=== PATIENT | female | born 1990 | race Caucasian/White ===

== ENCOUNTER 2020-09-13 19:11 | Emergency (ER) | payer OTHER, SELFPAY ==
[2020-09-13 19:15] VITALS: BP 131/75; PULSE 92; RESP 18; TEMP 36.3; O2SAT 99
[2020-09-13 19:56] LABS: Basophils Absolute Auto 0.1 K/mm3 (0.0-0.1); Basophils Percent Auto 0.7 % (0.2-1.2); Eosinophils Absolute Auto 0.3 K/mm3 (0-0.3); Eosinophils Percent Auto 3.6 % (0-4.4); Hematocrit 42.8 % (37.0-47.0); Hemoglobin 14.3 g/dL (12.0-15.0); Immature Granulocyte Absolute 0.02 K/mm3 (0.00-0.031); Immature Granulocyte Percent A 0.2 % (0-0.5); Lymphocytes Absolute Auto 3.23 K/mm3 (0.9-3.2); Lymphocytes Percent Auto 38.2 % (18.3-44.2); Mean Corpuscular HGB Conc 33.4 g/dl (32-36); Mean Corpuscular Hemoglobin 29.2 pg (26-34); Mean Corpuscular Volume 87.5 fl (80-100); Mean Platelet Volume 10.6 fl (7.4-10.4); Monocytes Absolute Auto 0.6 K/mm3 (0.1-0.6); Monocytes Percent Auto 6.6 % (2.6-8.5); Neutrophils Absolute Auto 4.3 K/mm3 (1.3-6.7); Neutrophils Percent Auto 50.7 % (45.5-73.1); Platelet Count Result 335 k/mm3 (150-375); Red Blood Count 4.89 M/mm3 (4.2-5.4); Red Cell Distribution Width 13.1 % (11.5-14.5); White Blood Count 8.5 K/mm3 (4.5-10.0)
[2020-09-13 19:58] LABS: Add Urine Microscopic? NO; Appearance Urine Clear (Clear); Bilirubin Urine Negative (Negative); Blood Urine Negative (Negative); Color Urine Yellow (Yellow); Glucose Urine UA Negative (Negative); Ketones Urine Negative (Negative); Leukocyte Esterase Ur Negative LEU/UL (Negative); Nitrate Urine Negative (Negative); Protein Urine Negative (Negative); Specific Grav Ur 1.016 (1.001-1.035); Urobilinogen Urine Negative mg/dL (<2.0)
[2020-09-13 20:07] LABS: Anion Gap 8 mmol/L (8-16); Blood Urea Nitrogen 8 mg/dL (7-17); Calcium 9.2 mg/dL (8.4-10.2); Carbon Dioxide 26 mmol/L (22-30); Chloride 107 mmol/L (98-107); Estimated CRCL calculation 111 ml/min; Estimated Glomerular Filt Rate > 60; Glucose 90 mg/dL (65-105); Potassium 3.9 mmol/L (3.4-5.0); Sodium 141 mmol/L (137-145)
--- NOTE | 2020-09-13 20:43 | ED.BACK ---
HPI - Back Pain/Injury General Chief Complaint: Back Pain/Injury <Niles Chu PA-C - Last Filed: 09/13/20 20:48> Stated Complaint: back pain <Niles Chu PA-C - Last Filed: 09/13/20 20:48> Time Seen by Provider: 09/13/20 20:30 <Niles Chu PA-C - Last Filed: 09/13/20 20:48> Source: patient <Niles Chu PA-C - Last Filed: 09/13/20 20:48> Mode of arrival: ambulatory <Niles Chu PA-C - Last Filed: 09/13/20 20:48> Limitations: no limitations <DEON Dash Last Filed: 09/13/20 20:48> History of Present Illness HPI Narrative: Patient is a 29-year-old female who presents to emergency department for evaluation of right lower back pain radiating down the right leg that is been present since Saturday patient had been at a alliance party prior evening developed the pain next day upon waking which has been persistent. Patient has not taken anything for his symptoms on arrival to emergency department is in the room in no distress pain is worse with any activity or movement <Niles Chu PA-C - Last Filed: 09/13/20 20:48> Related Data Home Medications: Home Medications Medication Instructions Recorded Confirmed albuterol sulfate 2 CONTINUOUS NEBULIZATION TID 09/13/20 <Niles Chu PA-C - Last Filed: 09/13/20 20:48> Allergies/Adverse Reactions: Allergies Allergy/AdvReac Type Severity Reaction Status Date / Time adhesive tape Allergy Mild HIVES Verified 09/13/20 19:12 <Niles Chu PA-C - Last Filed: 09/13/20 20:48> Review of Systems Review of Systems: All systems reviewed & are unremarkable except as noted in HPI and below <Niles Chu PA-C - Last Filed: 09/13/20 20:48> [facility] Surgical History Surgical History: Surgical History (Updated 09/13/20 @ 20:45 by Niles Chu PA-C) H/O section <DEON Dash Last Filed: 09/13/20 20:48> Social History Social History: Social History (Updated 09/13/20 @ 20:45 by Niles Chu PA-C) Smoking status: Never smoker Gender identity (if verbalized by the patient): Female <Niles Chu PA-C - Last Filed: 09/13/20 20:48> Exam Narrative: Exam Narrative: GENERAL: Well-appearing, well-nourished, and in no acute distress. HEAD: Normocephalic, atraumatic. EYES: PERRLA and EOMI. ENT: Nares clear, no rhinorrhea or epistaxis. Mucous membranes moist. CHEST: Clear to auscultation. No respiratory distress. No wheezes rales or rhonchi HEART: Regular rate and rhythm. No murmur heard. Normal peripheral pulses. ABDOMEN: Soft, nontender, nondistended EXTREMITIES: Normal range of motion. No edema. Tenderness over the right lower lumbar region over the right SI joint SKIN: Warm, dry, no rash. NEURO: No focal deficits. Alert and oriented x3. Normal speech and gait PSYCH: Normal mood and affect. <Niles Chu PA-C - Last Filed: 09/13/20 20:48> Course Course Emergency Course: Patient with low back pain likely sciatic in nature given the radicular symptoms down the leg no other high risk changes in the blood work patient will be discharged on anti-inflammatories and muscle relaxers. Patient was given a dose of anti-inflammatory in the emergency depart <Niles Chu PA-C - Last Filed: 09/13/20 20:48> Vital Signs Vital signs: Vital Signs Temperature 36.3 C L 09/13/20 19:15 Pulse Rate 92 09/13/20 19:15 Respiratory Rate 18 09/13/20 19:15 Blood Pressure 131/75 09/13/20 19:15 Pulse Oximetry 99 09/13/20 19:15 Temperature 36.3 C L 09/13/20 19:15 Pulse Rate 67 09/13/20 22:22 Respiratory Rate 18 09/13/20 22:22 Blood Pressure 124/87 09/13/20 22:22 Pulse Oximetry 99 09/13/20 22:22 <Niles Chu PA-C - Last Filed: 09/13/20 20:48> Vital Signs Temperature 36.3 C L 09/13/20 19:15 Pulse Rate 92 09/13/20 19:15 Respiratory Rate 18 09/13/20 19:15 Blood Pressure 131/75
[2020-09-13] MEDS: KETOROLAC (*BKC) 60 MG/2 ML VIAL IM (21:03)
[2020-09-13 21:28] VITALS: BP 116/80; PULSE 73; RESP 18; O2SAT 73
[2020-09-13 22:22] VITALS: BP 124/87; PULSE 67; RESP 18; O2SAT 99
== END 2020-09-13 22:25 | disposition home or self-care (01) ==
PROVIDERS: General Practice; Emergency Provider Emergency Medicine
DX: M54.16 Radiculopathy, lumbar region (principal)
CPT/HCPCS: 36415; 80048; 81003; 81025; 85025; 96372; 99283; J1885

== ENCOUNTER 2021-05-28 16:04 | Emergency (ER) | payer OTHER, SELFPAY ==
[2021-05-28 16:08] VITALS: BP 154/84; PULSE 100; RESP 18; TEMP 36.6; O2SAT 99
--- NOTE | 2021-05-28 16:25 | ED.GENADULT ---
HPI - General Adult General Chief complaint: Dizziness <DEON Dash Last Filed: 05/28/21 18:47> Stated complaint: , dizzy <DEON Dash Last Filed: 05/28/21 18:47> Time Seen by Provider: 05/28/21 16:05 <DEON Dash Last Filed: 05/28/21 18:47> Source: patient and RN notes reviewed <DEON Dash Last Filed: 05/28/21 18:47> Mode of arrival: ambulatory <DEON Dash Last Filed: 05/28/21 18:47> Limitations: no limitations <DEON Dash Last Filed: 05/28/21 18:47> History of Present Illness HPI narrative: Patient is a 30-year-old female who presents with dizziness since Saturday patient notes she is currently 10 weeks has had a ultrasound confirming intrauterine is G6, P1 followed by Dr. Rain patient is taking nausea medicine but continues to have emesis and believes that the symptoms she is experiencing could be related to dehydration from emesis and poor p.o. intake patient denies any pelvic pain vaginal bleeding abdominal pain urinary symptoms or issues with bowel habits patient presents in no distress denying any pain notes dizziness worse with activity and movement notes that she has had rhinorrhea and congestion but denies other URI symptoms patient is taking her nausea medicine and prenatals as her only medications <Niles Chu PA-C Last Filed: 05/28/21 18:47> Related Data Home medications: Home Medications Medication Instructions Recorded Confirmed albuterol sulfate 2 CONTINUOUS NEBULIZATION TID 09/13/20 <Niles Chu PA-C Last Filed: 05/28/21 18:47> Allergies/adverse reactions: Allergies Allergy/AdvReac Type Severity Reaction Status Date / Time adhesive tape Allergy Mild HIVES Verified 09/13/20 19:12 <DEON Dash Last Filed: 05/28/21 18:47> Review of Systems Review of Systems: All systems reviewed & are unremarkable except as noted in HPI and below <DEON Dash Last Filed: 05/28/21 18:47> [facility] Surgical History Surgical History: Surgical History H/O section <Niles Chu PA-C - Last Filed: 05/28/21 18:47> Social History Social History: Social History (Updated 05/28/21 @ 16:26 by Niles Chu PA-C) Smoking status: Never smoker Gender identity (if verbalized by the patient): Female <Niles Chu PA-C - Last Filed: 05/28/21 18:47> Exam Narrative: Exam Narrative: GENERAL: Well-appearing, well-nourished, and in no acute distress. HEAD: Normocephalic, atraumatic. EYES: PERRLA and EOMI. ENT: Nares clear, no rhinorrhea or epistaxis. Mucous membranes moist. Oropharynx without tonsillar hypertrophy exudate or other lesions. Bilateral TMs pearly hazel slightly bulging with fluid levels NECK: Supple. No adenopathy or masses. CHEST: Clear to auscultation. No respiratory distress. No wheezes rales or rhonchi HEART: Regular rate and rhythm. No murmur heard. Normal peripheral pulses. ABDOMEN: Soft, nontender, nondistended EXTREMITIES: Normal range of motion. No edema. SKIN: Warm, dry, no rash. NEURO: No focal deficits. Alert and oriented x3. PSYCH: Normal mood and affect. <Niles Chu PA-C - Last Filed: 05/28/21 18:47> Course Course Emergency Course: Patient presented with nausea and vomiting dizziness was hydrated feels much better at this time tolerating p.o. intake, patient will follow with her planned rush seater visit on Saturday with Dr. Silvio Oviedo, patient is afebrile nontoxic-appearing no distress, patient symptoms could also be attributed to the fluid levels behind her ears with her sinus symptoms that she is currently experiencing. Patient will be discharged home she agrees with this plan and will return if symptoms worsen <Niles Chu PA-C - Last Filed: 05/28/21 18:47> Vital Signs Vital signs:
[2021-05-28 16:37] LABS: Add Urine Microscopic? YES; Amorphous Sediment Urine Few; Appearance Urine Cloudy (Clear); Bacteria Urine 1+ /hpf; Bilirubin Urine Negative (Negative); Blood Urine Negative (Negative); Color Urine Yellow (Yellow); Glucose Urine UA Negative (Negative); Ketones Urine Negative (Negative); Leukocyte Esterase Ur Negative LEU/UL (Negative); Mucus Urine Few /lpf; Nitrate Urine Negative (Negative); Protein Urine 1+ mg/dL (Negative); RBC Urine 0-2 /hpf (0-2); Specific Grav Ur 1.019 (1.001-1.035); Squamous Epithelial Cell Urine Moderate /hpf (Few); Urobilinogen Urine Negative mg/dL (<2.0); WBC Urine 0-3 /hpf
[2021-05-28 16:43] LABS: Basophils Percent Auto 0.6 % (0.2-1.2); Eosinophils Absolute Auto 0.1 K/mm3 (0-0.3); Eosinophils Percent Auto 2.2 % (0-4.4); Hematocrit 39.6 % (37.0-47.0); Hemoglobin 13.5 g/dL (12.0-15.0); Immature Granulocyte Absolute 0.02 K/mm3 (0.00-0.031); Immature Granulocyte Percent A 0.3 % (0-0.5); Lymphocytes Absolute Auto 1.97 K/mm3 (0.9-3.2); Lymphocytes Percent Auto 30.3 % (18.3-44.2); Mean Corpuscular HGB Conc 34.1 g/dl (32-36); Mean Corpuscular Hemoglobin 28.4 pg (26-34); Mean Corpuscular Volume 83.4 fl (80-100); Mean Platelet Volume 10.1 fl (7.4-10.4); Monocytes Absolute Auto 0.5 K/mm3 (0.1-0.6); Neutrophils Absolute Auto 3.8 K/mm3 (1.3-6.7); Neutrophils Percent Auto 58.6 % (45.5-73.1); Platelet Count Result 358 k/mm3 (150-375); Red Blood Count 4.75 M/mm3 (4.2-5.4); Red Cell Distribution Width 12.7 % (11.5-14.5); White Blood Count 6.5 K/mm3 (4.5-10.0)
[2021-05-28 16:53] LABS: Alanine Aminotransferase 10 U/L (4-35); Albumin Level 4.1 g/dL (3.5-5.1); Alkaline Phosphatase 50 U/L (38-126); Anion Gap 10 mmol/L (8-16); Aspartate Amino Transferase 20 U/L (14-36); Bilirubin,Total 0.2 mg/dL (0.2-1.3); Blood Urea Nitrogen 5 mg/dL (7-17); Calcium 9.6 mg/dL (8.4-10.2); Carbon Dioxide 21 mmol/L (22-30); Chloride 105 mmol/L (98-107); Estimated CRCL calculation 122 ml/min; Estimated Glomerular Filt Rate > 60; Glucose 99 mg/dL (65-105); Potassium 3.7 mmol/L (3.4-5.0); Sodium 136 mmol/L (137-145)
[2021-05-28] MEDS: SODIUM CHLORIDE 0.9% IV 1,000 ML 999 ML IV CONT (16:57)
[2021-05-28] MEDS: FAMOTIDINE 20 MG/2 ML VIAL IV PUSH (16:59)
[2021-05-28 17:03] VITALS: BP 104/74; BP 108/73; PULSE 79; PULSE 80
[2021-05-28] MEDS: PROCHLORPERAZINE EDISYLATE 10 MG/2 ML VIAL IV PUSH (17:03)
[2021-05-28 17:06] VITALS: BP 96/78; PULSE 93
[2021-05-28 17:15] VITALS: BP 102/81; PULSE 74; RESP 18; O2SAT 100
--- NOTE | 2021-05-28 17:33 | PC.NURSE ---
OB contacted for heart tone monitoring.
[2021-05-28] MEDS: DEXTROSE 5%/LACTATED RINGERS 1,000 ML 999 ML IV CONT (17:50)
--- NOTE | 2021-05-28 18:01 | PC.NURSE ---
OB unable to find heart tones. TRACEY Woodard aware.
[2021-05-28 18:56] VITALS: BP 108/70; PULSE 81; RESP 16; TEMP 36.4; O2SAT 99
== END 2021-05-28 18:58 | disposition home or self-care (01) ==
PROVIDERS: Emergency Medicine Emergency Medical Services; Emergency Provider General Practice; PCP Emergency Medicine
DX: O21.9 Vomiting of pregnancy, unspecified (principal); O26.891 Other specified pregnancy related conditions, first trimester; R42 Dizziness and giddiness; O99.511 Diseases of the respiratory system complicating pregnancy, first trimester; J32.9 Chronic sinusitis, unspecified; Z3A.10 10 weeks gestation of pregnancy
CPT/HCPCS: 36415; 80053; 81001; 85025; 96361; 96374; 96375; 99284; J0780; J7030; J7121

== ENCOUNTER 2021-07-08 20:32 | Emergency (ER) | payer OTHER, SELFPAY ==
[2021-07-08 20:40] VITALS: BP 121/83; PULSE 108; RESP 17; TEMP 36.7; O2SAT 100
--- NOTE | 2021-07-08 21:21 | ECG_ITS ---
Measurements Intervals [place] Rate: 94 P: -3 OR: 120 QRS: 13 QRSD: 89 T: -5 QT: 337 QTc: 423 Interpretive Statements SINUS RHYTHM INCOMPLETE RIGHT BUNDLE BRANCH BLOCK BORDERLINE T WAVE ABNORMALITY- ANTEROLAT/INF LEADS BORDERLINE ECG Electronically Signed On 07-08-2021 21:27:47 CDT by Yosi Carroll D.O.
[2021-07-08 21:39] LABS: Basophils Percent Auto 0.4 % (0.2-1.2); Eosinophils Absolute Auto 0.1 K/mm3 (0-0.3); Eosinophils Percent Auto 1.2 % (0-4.4); Hemoglobin 12.6 g/dL (12.0-15.0); Immature Granulocyte Absolute 0.04 K/mm3 (0.00-0.031); Immature Granulocyte Percent A 0.4 % (0-0.5); Lymphocytes Absolute Auto 2.42 K/mm3 (0.9-3.2); Lymphocytes Percent Auto 21.2 % (18.3-44.2); Mean Corpuscular HGB Conc 34.1 g/dl (32-36); Mean Corpuscular Hemoglobin 28.6 pg (26-34); Mean Corpuscular Volume 84.1 fl (80-100); Mean Platelet Volume 9.8 fl (7.4-10.4); Monocytes Absolute Auto 0.8 K/mm3 (0.1-0.6); Monocytes Percent Auto 6.6 % (2.6-8.5); Neutrophils Percent Auto 70.2 % (45.5-73.1); Platelet Count Result 335 k/mm3 (150-375); Red Cell Distribution Width 13.2 % (11.5-14.5); White Blood Count 11.4 K/mm3 (4.5-10.0)
[2021-07-08 21:49] LABS: Anion Gap 8 mmol/L (8-16); Blood Urea Nitrogen 4 mg/dL (7-17); Calcium 9.7 mg/dL (8.4-10.2); Carbon Dioxide 21 mmol/L (22-30); Chloride 106 mmol/L (98-107); Estimated CRCL calculation 168 ml/min; Estimated Glomerular Filt Rate > 60; Glucose 83 mg/dL (65-110); Potassium 3.5 mmol/L (3.4-5.0); Sodium 135 mmol/L (137-145)
--- NOTE | 2021-07-08 23:42 | ED.ABDPAIN ---
HPI - Abdominal Pain History of Present Illness HPI narrative: 30 yo female at 15 weeks gestation presents to the ED after a fall. She reports that she slipped and fell down tree steps. She is not sure exactly how the injury occurred but she now has pain in the right flank and abdomen. The pain is worse with anything that engages the abdominal muscles. She also has mild nausea, this is not atypical. No pelvic pain, vaginal bleeding, discharge. Related Data Home Medications Medication Instructions Recorded Confirmed albuterol sulfate 2 CONTINUOUS NEBULIZATION TID 09/13/20 Allergies Allergy/AdvReac Type Severity Reaction Status Date / Time adhesive tape Allergy Mild HIVES Verified 09/13/20 19:12 Review of Systems Review of Systems: All systems reviewed & are unremarkable except as noted in HPI and below Constitutional: Constitutional: Denies fever(s) Cardiovascular: Cardiovascular: Denies chest pain Respiratory: Respiratory: Denies dyspnea Gastrointestinal: Gastrointestinal: Reports nausea and Denies vomiting PMFSH Surgical History Surgical History H/O section Social History Social History Smoking status: Never smoker Gender identity (if verbalized by the patient): Female Exam Const: General: healthy appearing, no acute distress and alert Orientation/consciousness: patient oriented x3 HENMT: Head: normal to inspection Neck: Neck: normal visual inspection and no lymphadenopathy Chest: Chest palpation & inspection: no tenderness Resp: Effort & Inspection: normal respiratory effort Auscultation: clear to auscultation bilaterally, no rales, no rhonchi and no wheezes Cardio: Jugular venous distension: no JVD Rate: regular rate Rhythm: regular rhythm Heart sounds: no murmurs GI: GI Palp: Yes Soft to palpation and Yes Tenderness to palpation present (GI) (mild superficial tenderness to right flank and abdomen) Skin: General skin exam: normal color Neuro: General: patient oriented x3 and moves all extremities Speech: normal speech Extrem: General: no edema Psych: Appearance: well kempt Affect: normal affect Course Vital Signs Vital signs: Vital Signs Temperature 36.7 C 07/08/21 20:40 Pulse Rate 108 H 07/08/21 20:40 Respiratory Rate 17 07/08/21 20:40 Blood Pressure 121/83 07/08/21 20:40 Pulse Oximetry 100 07/08/21 20:40 Temperature 36.7 C 07/08/21 20:40 Pulse Rate 77 07/09/21 01:15 Respiratory Rate 20 07/09/21 01:15 Blood Pressure 106/71 07/09/21 01:15 Pulse Oximetry 100 07/09/21 01:15 MDM - Abdominal Pain MDM Narrative Medical decision making narrative: Pain consistent with abdominal wall strain. Reassuring bedside ultrasound. Medical Records Attestation: I reviewed the patient's medical records. Lab Data Result diagrams: 07/08/21 21:31 07/08/21 21:31 Labs: Lab Results 07/08/21 07/08/21 07/08/21 Range/Units 21:31 21:31 23:51 WBC 11.4 H (4.5-10.0) K/mm3 RBC 4.40 (4.2-5.4) M/mm3 Hgb 12.6 (12.0-15.0) g/dL Hct 37.0 (37.0-47.0) % MCV 84.1 (80-100) fl MCH 28.6 (26-34) pg MCHC 34.1 (32-36) g/dl RDW 13.2 (11.5-14.5) % Plt Count 335 (150-375) k/mm3 MPV 9.8 (7.4-10.4) fl Immature Gran % (Auto) 0.4 (0-0.5) % Neut % (Auto) 70.2 (45.5-73.1) % Lymph % (Auto) 21.2 (18.3-44.2) % [place] % (Auto) 6.6 (2.6-8.5) % Eos % (Auto) 1.2 (0-4.4) % Baso % (Auto) 0.4 (0.2-1.2) % Lymph # (Auto) 2.42 (0.9-3.2) K/mm3 [place] # (Auto) 0.8 H (0.1-0.6) K/mm3 Eos # (Auto) 0.1 (0-0.3) K/mm3 Baso # (Auto) 0.0 (0.0-0.1) K/mm3 Abs Immat Gran (auto) 0.04 H (0.00-0.031) K/mm3 Absolute Neuts (auto) 8.0 H (1.3-6.7) K/mm3 Absolute Nucleated RBC 0.0 (0.0-0.012) K/mm3 Nucleated RBC % 0.0 (0.0-0.2) % So
[2021-07-08 23:53] VITALS: BP 117/73; PULSE 78; RESP 18; O2SAT 100
[2021-07-09 00:06] LABS: Add Urine Microscopic? YES; Appearance Urine Clear (Clear); Bacteria Urine 2+ /hpf; Bilirubin Urine Negative (Negative); Blood Urine Negative (Negative); Color Urine Yellow (Yellow); Glucose Urine UA Negative (Negative); Ketones Urine Trace mg/dL (Negative); Leukocyte Esterase Ur Negative LEU/UL (Negative); Mucus Urine Rare /lpf; Nitrate Urine Negative (Negative); Protein Urine Negative (Negative); RBC Urine 0-2 /hpf (0-2); Specific Grav Ur 1.012 (1.001-1.035); Squamous Epithelial Cell Urine Few /hpf (Few); Urobilinogen Urine Negative mg/dL (<2.0)
[2021-07-09 00:11] VITALS: BP 109/70; BP 115/68; PULSE 71; PULSE 79
[2021-07-09 00:13] VITALS: BP 113/79; PULSE 93
[2021-07-09] MEDS: ONDANSETRON HCL ODT 4 MG TABLET PO (00:18)
[2021-07-09 01:15] VITALS: BP 106/71; PULSE 77; RESP 20; O2SAT 100
== END 2021-07-09 01:16 | disposition home or self-care (01) ==
PROVIDERS: Emergency Provider Emergency Medicine
DX: O9A.212 Injury, poisoning and certain other consequences of external causes complicating pregnancy, second trimester (principal); S39.011A Strain of muscle, fascia and tendon of abdomen, initial encounter; Z3A.15 15 weeks gestation of pregnancy; I45.10 Unspecified right bundle-branch block; R94.31 Abnormal electrocardiogram [ECG] [EKG]; W10.9XXA Fall (on) (from) unspecified stairs and steps, initial encounter
CPT/HCPCS: 36415; 80048; 81001; 81025; 85025; 93005; 99283; A9270

== ENCOUNTER 2021-11-22 11:15 | Outpatient (RCR) | payer OTHER, SELFPAY ==
--- NOTE | 2021-11-08 12:04 | PTOPEVAL ---
PHYSICAL THERAPY EVALUATION AND PLAN OF CARE Thank you for referring Kelly Posey to [facility].? Please see clinical summary below. I will follow Kelly about every other week until she delivers unless she calls me sooner. Please review, sign, date and return this plan of care MONICO. I agree with and certify that the following plan of care is medically necessary. Referring Physician Date Attending Provider: Bruce Rain MD Evaluation Outpatient Past Medical History Respiratory History Hx Asthma Yes Reproductive History Hx Section Yes Evaluation Information Problem Diagnosis pelvic pain in Onset 1.5months Subjective Information having a lot of pain in the Query Text:As Reported By Patient/ left leg; can barely lift the Family left leg (sometimes the right, but mostly the left). Stairs and walking and rolling over in bed are very difficult because of the pain to lift the leg. Getting into and out of the car and getting off the couch are very difficult. patient is and delivered via scheduled C- section on December 17, 2021 Pain Assessment Timing of Pain Assessment Timing of Pain Assessment Assessment Pain Scale Pain Scale Used Numeric (1 - 10) Self Report Pain Assessment Left Leg(s) Reported Pain Level 7 Pain Description Sharp Greatest Pain Intensity 8 Other Pain Aggravating Factors walking, stairs, any time lifting the leg Pain Score Pain Score 7: Self Report Interventions Used Interventions Used By Clinicians Exercise,Joint Mobilization Lower Extremity Muscle Strength Testing General Lower Extremity Strength Gross Lower Extremity Strength decreased glute strength as indicated by hip drop when standing on single leg; demonstrates that she has too much pain to try to cross her leg in figure 4 position without pulling her leg into position; also demonstrates the difficult she has lifting her left leg Palpation Assessment Palpation Palpation sacrum: left apex posterior and sacrum rotated with right base forward; right SIJ is very stiff to mobilization;
--- NOTE | 2021-12-05 10:52 | PCPTNOTE ---
Patient did not show up for scheduled appointment this date. Called and spoke with patient. She was just d/c'd from hospital for being in early labor. Contractions stopped but not able to make it to appt today.
--- NOTE | 2021-12-19 09:50 | PCPTNOTE ---
PHYSICAL THERAPY DISCHARGE NOTE Attending Provider: Bruce Rain MD Patient:Kelly Posey Date of :1990 Patient has not returned for any further treatments since 11/22/2021, therefore will be discharged at this time. Patient?s initial visit was on 11/08/2021 and had a total of 2 visits. Thank you for referring this patient to [facility]. Please review, sign, date and return this discharge summary MONICO. I have been updated about the patient's current status and I agree with discharge from the above service at this time. Referring Physician Date
== END 2022-01-22 11:35 | disposition home or self-care (01) ==
LOC: ANHPT 11:15
PROVIDERS: Visit Provider Student in an Organized Health Care Education/Training Program
DX: R10.2 Pelvic and perineal pain (principal)
CPT/HCPCS: 97140; 97162

== ENCOUNTER 2021-11-28 07:59 | Observation (INO) | payer OTHER, SELFPAY ==
[2021-11-28 08:20] VITALS: TEMP 36.8
[2021-11-28 08:30] VITALS: BMI 31.4
--- NOTE | 2021-11-28 08:30 | OBADM ---
This patient, Kelly Posey, admitted to the OB room Labor/Delivery/Recovery 120 for observation for contractions. Patient/family oriented to hospital policies and general routines including ID bracelet, bed and alarms, visiting hours, pain management, procedures, bathroom and other care routines, personal items, smoking policy, room service/diet, and visiting hours. Patient/Family are encouraged to report perceived risks to care and to ask questions if they do not understand what they are told or what they should do.
[2021-11-28 09:00] VITALS: BP 112/71; PULSE 84
[2021-11-28] MEDS: LACTATED RINGERS 1,000 ML 999 ML IV CONT (09:35)
[2021-11-28 09:46] LABS: EDCOVIDSCREEN Positive (Negative)
[2021-11-28 11:02] VITALS: TEMP 36.8
[2021-11-28 11:03] VITALS: BP 100/76; PULSE 79
[2021-11-28 11:35] LABS: HIV 1/2 Ab P24 Ag Result Negative (Negative)
--- NOTE | 2021-11-28 14:30 | PM.OBTRLD ---
OB - Triage/Final Diagnosis Visit Information Date of evaluation: 11/28/21 Reason for evaluation: threatened labor and other (URI symptoms) Comments/Additional reasons for admission: I have assessed the risk for this patient, Kelly Posey, and determined that she would benefit from observation care. Evaluation Laboratory results: Laboratory Tests 11/28/21 11/28/21 09:30 10:19 HIV 1&2 Ab/P24 Ag 4thGn Negative SARS-CoV-2 IgG/IgM Ag?Rapid Positive Vital signs: Vital Signs - 24 hr 11/28/21 08:20 11/28/21 09:00 11/28/21 11:02 Temperature 36.8 C 36.8 C Pulse Rate 84 Blood Pressure 112/71 11/28/21 11:03 Temperature Pulse Rate 79 Blood Pressure 100/76
== END 2021-11-28 11:21 | disposition home or self-care (01) ==
PROVIDERS: Admitting Provider Student in an Organized Health Care Education/Training Program; Visit Provider Student in an Organized Health Care Education/Training Program
DX: O47.03 False labor before 37 completed weeks of gestation, third trimester (principal); O98.513 Other viral diseases complicating pregnancy, third trimester; U07.1 COVID-19; Z11.4 Encounter for screening for human immunodeficiency virus [HIV]; Z3A.36 36 weeks gestation of pregnancy
CPT/HCPCS: 36415; 86703; 87426; 96360; C9803; G0378; G0379; G0432; J7120

== ENCOUNTER 2021-12-04 23:50 | Observation (INO) | payer OTHER, SELFPAY ==
--- NOTE | 2021-12-04 23:50 | OBADM ---
This patient, Kelly Posey, admitted to the OB room Labor/Delivery/Recovery 120 for observation. Patient/family oriented to hospital policies and general routines including ID bracelet, bed and alarms, visiting hours, pain management, procedures, bathroom and other care routines, personal items, smoking policy, room service/diet, and visiting hours. Patient/Family are encouraged to report perceived risks to care and to ask questions if they do not understand what they are told or what they should do.
[2021-12-05] VITALS: RESP 18; TEMP 36.6
--- NOTE | 2021-12-05 00:04 | PC.NURSE ---
pt states she has been having an increase in vaginal and rectal pressure. Pt test positive for COVID with quarantine ending as of 12/05.
[2021-12-05 00:10] VITALS: BP 128/79; PULSE 96
[2021-12-05 00:31] VITALS: BMI 33.3
--- NOTE | 2021-12-06 11:24 | PM.OBTRLD ---
OB - Triage/Final Diagnosis Visit Information Date of evaluation: 12/05/21 Reason for evaluation: threatened labor Comments/Additional reasons for admission: I have assessed the risk for this patient, Kelly Lainey Posey, and determined that she would benefit from observation care.
== END 2021-12-05 00:45 | disposition home or self-care (01) ==
PROVIDERS: Admitting Provider Student in an Organized Health Care Education/Training Program; Visit Provider Student in an Organized Health Care Education/Training Program
DX: O47.9 False labor, unspecified (principal); Z3A.00 Weeks of gestation of pregnancy not specified
CPT/HCPCS: G0378; G0379

== ENCOUNTER 2021-12-16 11:27 | Outpatient (CLI) | payer OTHER, SELFPAY ==
[2021-12-16 12:37] LABS: Hemoglobin 12.2 g/dL (12.0-15.0); Mean Corpuscular Hemoglobin 28.9 pg (26-34); Mean Corpuscular Volume 87.7 fl (80-100); Mean Platelet Volume 12.1 fl (7.4-10.4); Platelet Count Result 254 k/mm3 (150-375); Red Blood Count 4.22 M/mm3 (4.2-5.4); Red Cell Distribution Width 14.9 % (11.5-14.5); White Blood Count 6.9 K/mm3 (4.5-10.0)
[2021-12-18 12:00] LABS: Rapid Plasma Reagin Non-Reactive (NonReactive)
== END 2021-12-16 11:28 | disposition home or self-care (01) ==
PROVIDERS: Visit Provider Student in an Organized Health Care Education/Training Program
DX: Z34.93 Encounter for supervision of normal pregnancy, unspecified, third trimester (principal); Z3A.00 Weeks of gestation of pregnancy not specified
CPT/HCPCS: 36415; 85027; 86592; 86850; 86900; 86901

== ENCOUNTER 2021-12-18 05:55 | Inpatient (IN) | payer OTHER, SELFPAY ==
[2021-12-18] VITALS (57 sets, daily range): BP systolic 90–149; BP diastolic 56–94; PULSE 58–134; RESP 14–20; TEMP 36.2–36.9; O2SAT 96–100; BMI 33.3
--- NOTE | 2021-12-18 05:55 | LDADM ---
This patient, Kelly Posey, was admitted to Labor/Delivery/Recovery 120 on 12/18/21 at 05:55. Plans for labor, pain management and were discussed with patient. Patient/family oriented to hospital policies and general routines including ID bracelet, bed and alarms, visiting hours, pain management, procedures, bathroom and other care routines, personal items, smoking policy, room service/diet and guest tray routines, security routines, and visiting hours. Patient/Family are encouraged to report perceived risks to care and to ask questions if they do not understand what they are told or what they should do. See OBIX for further documentation.
--- NOTE | 2021-12-18 06:29 | WPDANESEPP ---
Anes - Eval Pre Procedure Procedure: Operation Date: 12/18/21 07:30 Proposed Procedures p Repeat Section - Bruce Rain MD Date/Time: 12/18/21 06:29 Pre Op Diagnosis: R C/s Patient Data Age: 31 Gender: F Height: Weight: Last Vital Signs Temp 36.7 C 12/18/21 06:23 Pulse 105 H 12/18/21 06:15 BP 125/86 12/18/21 06:15 Allergies Allergy/AdvReac Type Severity Reaction Status Date / Time adhesive tape Allergy Mild HIVES Verified 09/13/20 19:12 Home Medications Medication Instructions Recorded Confirmed Type PNV cmb#95-ferrous fumarate-FA 1 tablet PO DAILY 11/28/21 12/05/21 History [] omeprazole 20 mg PO DAILY 11/28/21 12/05/21 History Patient hx anesthesia problems: none Family hx anesthesia problems: none Results Review: All pre-operative results and documents have been reviewed as part of the pre-operative evaluation. PMFSH Past Medical History Medical History (Updated 12/18/21 @ 06:30 by Ema Mlulen CRNA) Intrauterine Surgical History Surgical History H/O section Family History Family History (Updated 11/28/21 @ 10:07 by Yoana Still RN) Other No pertinent family history Social History Social History Smoking status: Never smoker Substance use: former Last use: Earlier this year Gender identity (if verbalized by the patient): Female Spiritual care concerns: No Exam Day of Procedure 12/18/21 06:29
[2021-12-18] MEDS: LACTATED RINGERS 1,000 ML 999 ML IV CONT (06:30)
--- NOTE | 2021-12-18 06:32 | ADMGEN ---
This patient, Kelly Posey, was admitted to Labor/Delivery/Recovery 120-00. Patient/family oriented to hospital policies and general routines including ID bracelet, bed and alarms, visiting hours, pain management, procedures, bathroom and other care routines, personal items, smoking policy, room service/diet, and visiting hours. Information on how to activate the Rapid Response Team has been discussed. Patient/Family are encouraged to report perceived risks to care and to ask questions if they do not understand what they are told or what they should do.
--- NOTE | 2021-12-18 06:44 | WPDANESEFPP ---
Anes - Eval Final PreProcedure Day of Procedure 12/18/21 06:44 Patient weight: obese Heart: regular rate and rhythm Lungs: clear to auscultation Airway: Mallampati scale class II Neurological: alert and oriented ASA classification: II Emergent: no Anesthetic plan: proceed Anesthesia type and monitoring: regional spinal and standard monitoring Results Review: All pre-operative results and documents have been reviewed as part of the pre-operative evaluation. Informed Consent: The patient's anesthetic plan and its attendant risks and benefits were discussed with the patient/family/POA. Questions were solicited and answers provided to the satisfaction of the patient/family/POA.
--- NOTE | 2021-12-18 06:50 | PM.IMHP ---
H&P: HPI History of Present Illness Date/Time: 12/18/21 06:50 Chief Complaint: Intrauterine at term prior x1 Narrative: 31 yo at 39w1d who presents for repeat . Pt had a prior for failure to progress. She elects for repeat . Her has been complicated by asthma, THC use, and GERD. Review of Systems Cardiovascular: Cardiovascular: Denies chest pain, Denies leg edema, Denies palpitations, Denies dyspnea and Denies dyspnea on exertion Respiratory: Respiratory: Denies cough, Denies dyspnea and Denies dyspnea on exertion Gastrointestinal: Gastrointestinal: Denies abdominal pain, Denies constipation, Denies diarrhea, Denies nausea and Denies vomiting Genitourinary: Genitourinary: Denies hematuria, Denies urinary frequency, Denies dysuria, Denies pelvic pain, Denies urinary incontinence and Denies vaginal discharge Neurologic: Reports system reviewed and no additional complaints, except as documented Psychiatric: Psychiatric: Reports no additional psychiatric complaints Endocrine: Endocrine: Denies palpitations PMFSH Past Medical History Medical History (Updated 12/18/21 @ 06:51 by Bruce Rain MD) Intrauterine Surgical History Surgical History (Updated 12/18/21 @ 06:51 by Bruce Rain MD) H/O section Family History Family History (Updated 11/28/21 @ 10:07 by Yoana Still RN) Other No pertinent family history Social History Social History Smoking status: Never smoker Substance use: former Last use: Earlier this year Gender identity (if verbalized by the patient): Female Spiritual care concerns: No Meds Home Medications and Allergies Home Medications Medication Instructions Recorded Confirmed Type PNV cmb#95-ferrous fumarate-FA 1 tablet PO DAILY 11/28/21 12/18/21 History [] omeprazole 20 mg PO DAILY 11/28/21 12/18/21 History albuterol sulfate 2 inh INHALATION Q4-6H PRN 12/18/21 12/18/21 History Allergies Allergy/AdvReac Type Severity Reaction Status Date / Time adhesive tape Allergy Mild HIVES Verified 12/18/21 06:38 Vital Signs Vital Signs - 24 hr 12/18/21 06:14 12/18/21 06:15 12/18/21 06:23 Temperature 36.7 C Pulse Rate 134 H 105 H Blood Pressure 128/85 125/86 12/18/21 06:45 Temperature Pulse Rate 87 Blood Pressure 136/84 Exam Const: General: no acute distress Eyes: EOM: EOMs intact bilaterally Neck: Neck: supple Thyroid: thyroid normal Chest: Breast/axilla inspection: normal inspection of the breasts Breast/axilla palpation: normal palpation of the breasts, normal palpation of the axillae and no axillary lymphadenopathy Resp: Effort & Inspection: normal respiratory effort Auscultation: clear to auscultation bilaterally Cardio: Rate: regular rate Rhythm: regular rhythm GI: Inspection: non-distended and other (Gravid) GI Palp: Yes Soft to palpation, No Tenderness to palpation present (GI) and No Guarding due to palpation present (GI) Auscultation: normal bowel sounds : Speculum Exam - Vagina: No vaginal bleeding OB/external & speculum: external exam normal; No vaginal bleeding Skin: General skin exam: normal color and no rashes or lesions noted Neuro: Cognition (Neuro): normal cognition Speech: normal speech Extrem: General: normal to inspection Psych: Mental Status: mental status grossly normal Affect: normal affect Assessment and Plan Assessment and plan (1) Supervision of high risk , unspecified, third trimester: Code(s): O09.93 - Supervision of high risk , unspecified, third trimester Status: Acute Assessment and Plan: 31 yo at 39w1d admit to L&D routine admission Rh+ labs wnl FHT cat 1 plan for repeat (2) History of section complicating : Code(s): O34.219 - Maternal c
--- NOTE | 2021-12-18 06:53 | WPDHPUPDATE1 ---
History and Physical Update Update Date/Time: 12/18/21 06:53 History and Physical has been reviewed, including an updated exam of the patient. There are NO changes in the patient's condition. Risks, benefits, and alternatives have been discussed and questions answered. Patient agrees to proceed with procedure.
[2021-12-18] MEDS: ceFAZolin 2 GM/D5W 50 ML 2 GM/50 ML BAG IVPB (07:02)
[2021-12-18] MEDS: KETOROLAC 30 MG/ML VIAL (*BKC) IV PUSH ×2 (07:34→16:07)
--- NOTE | 2021-12-18 08:13 | W.PM.PROC2 ---
Procedure Note - Detailed Date of Procedure 12/18/21 Pre-op Diagnosis R C/s Post-op Diagnosis same Procedure Performed repeat low transverse section Surgeon Bruce Rain MD Anesthesia spinal and epidural Indications prior section Findings anterior uterine wall adherent to anterior abdominal wall peritoneum Description of Procedure The patient was taken to the operating room. A combined spinal epidural anesthesic was administered and found to be adequate at a t-10 level. The patient was placed in a supine position with a slight left lateral tilt. A cage catheter was placed with return of clear urine. A Bovie grounding pad was placed. Surgical prep was performed and surgical drapes were placed. A surgical time out was performed. A Pfannenstiel skin incision was then made with the scalpel and carried through to the underlying layer of fascia. The fascia was then incised in the midline and the incision was extended laterally with the Shannon scissors. The superior aspect of the fascia was then grasped with the Garry clamps, elevated, and the underlying rectus muscles dissected off bluntly and sharply. Attention was then turned to the inferior aspect of this incision which, in a similar fashion, was grasped, tented up with the Garry clamps, and the rectus muscles dissected off both bluntly and sharply. The rectus muscles were then in the midline. The peritoneum was identified and entered bluntly. The peritoneal incision was then extended superiorly and inferiorly with good visualization of the bladder. The anterior uterine surface was noted to be adherent tot he anterior abdominal wall. These peritoneal adhesions were taken down with Bovie cautery. The bladder blade was reinserted. The uterus was inspected for rotation. A low-transverse uterine incision was made sharply with the scalpel and entry was made into the uterine cavity. An amniotomy was made and copious amounts of clear fluid were noted on return. The uterine incision was extended laterally bluntly. The bladder blade was removed and the fetus was delivered atraumatically. The nose and mouth were suctioned with a bulb syringe. The umbilical cord was clamped twice and cut. The was handed off to the waiting staff. At the time of the delivery, the had good color, tone and grimace. The infant cried with minimal stimulation. A second segment of umbilical cord was clamped and cut for cord blood gasses. Cord blood was collected for determination of the blood type and for direct [place]. The placenta was delivered spontaneously without difficulty. The placenta appeared grossly normal and complete. The uterus was exteriorized and cleared of all clots and debris. The uterine incision was repaired using 0-monocryl suture in a running fashion. A second layer of 0 Monocryl suture was used in an imbricating fashion to obtain excellent hemostasis and uterine strength. The uterine closure was inspected for hemostasis. The posterior aspect of the uterus and the broad ligaments were inspected and the posterior cul-de-sac cleared of fluid and blood clots. The uterine closure was again inspected and found to be hemostatic. The uterus was returned to the abdominal cavity. The pericolic gutters were inspected and were cleared of all blood clots and debris. The uterine closure was then re inspected to ensure hemostasis as were all subfascial tissues. The peritoneum was closed using 3-0 vicryl in a running fashion. The fascia was reapproximated with 0-vicryl in a running fashion. The subcutaneous tissue was irrigated and hemostasis achieved with electrocautery. It was reapproximated with 3-0 vicryl in a running fashion. The skin was closed with 4-0 vicryl in a subcuticular fashion. A sterile dressing was applied to the wound. The patient tolerated the procedure well. Sponge, lap and needle counts were correct times three. The patient was taken to recovery in stable condition
[2021-12-18] MEDS: OXYTOCIN 30 UNITS/NS 500 ML 30 UNITS/500 ML BAG 125 UNITS IV CONT (08:32)
--- NOTE | 2021-12-18 10:35 | PC.NURSE ---
Patient transferred to post room #291 via stretcher. Support person present. Oriented to unit, room, information board, rooming in, admission packet and security measures. Patient verbalizes understanding.
[2021-12-18 10:40] LABS: Amphetamine Screen Urine Negative (Negative); Barbiturate Screen Urine Negative (Negative); Benzodiazepines Screen Urine Negative (Negative); Cannabinoid Screen Urine Negative (Negative); Cocaine Screen Urine Negative (Negative); Methadone Screen Urine Negative (Negative); Opiate Screen Urine Negative (Negative); Phencyclidine Screen Urine Negative (Negative)
[2021-12-18] MEDS: LORATADINE 10 MG TABLET PO (11:37)
[2021-12-18] MEDS: ONDANSETRON INJ 4 MG/2 ML VIAL IV PUSH (12:29)
[2021-12-18] MEDS: DEXTROSE 5%/0.45% SOD CHL 1,000 ML 125 ML IV CONT (12:35)
--- NOTE | 2021-12-18 14:14 | PC.NURSE ---
1340 - Consulted with patient who is demonstrated stimulation techniques to wake infant for feeding and holding skin to skin. Discussed infant feeding cues, frequencies, duration of feedings, feeding elimination flow sheet, and signs of adequate intake. Encouraged football hold, positioning/alignment, holding breast and asymmetrical latch on. was able to latch correctly. nursed effectively, eagerly, with rocking motion and occasional swallowing heard. Reviewed signs of a correct latch, effective nursing and suck swallow ratio. Infant was able to maintain latch without discomfort to mother. Nipple care reviewed. self detached. Mom effectively latched to left breast in the football position with no discomfort. Instructed mother to call out for RN assistance if she is unable to latch infant for feeding or she has discomfort with nursing. Reviewed offering infant the breast when feeding cues are visualized or initiate feeding from the start of one feed to the start of the next one about every two to three hours. Mother voiced understanding of information shared. Reported to primary RN.
[2021-12-18] MEDS: IBUPROFEN 600 MG TABLET PO (23:32)
[2021-12-19] VITALS: BP 94/42; PULSE 96; RESP 18; TEMP 37.2; O2SAT 99
[2021-12-19 04:20] VITALS: BP 118/53; PULSE 78; RESP 18; TEMP 36.5; O2SAT 98
[2021-12-19 05:27] LABS: Basophils Percent Auto 0.4 % (0.2-1.2); Eosinophils Percent Auto 0.4 % (0-4.4); Hematocrit 31.9 % (37.0-47.0); Hemoglobin 10.4 g/dL (12.0-15.0); Immature Granulocyte Absolute 0.02 K/mm3 (0.00-0.031); Immature Granulocyte Percent A 0.3 % (0-0.5); Lymphocytes Absolute Auto 1.86 K/mm3 (0.9-3.2); Lymphocytes Percent Auto 27.2 % (18.3-44.2); Mean Corpuscular HGB Conc 32.6 g/dl (32-36); Mean Corpuscular Hemoglobin 28.9 pg (26-34); Mean Corpuscular Volume 88.6 fl (80-100); Mean Platelet Volume 12.3 fl (7.4-10.4); Monocytes Absolute Auto 0.7 K/mm3 (0.1-0.6); Monocytes Percent Auto 10.4 % (2.6-8.5); Neutrophils Absolute Auto 4.2 K/mm3 (1.3-6.7); Neutrophils Percent Auto 61.3 % (45.5-73.1); Platelet Count Result 179 k/mm3 (150-375); Red Cell Distribution Width 15.2 % (11.5-14.5); White Blood Count 6.8 K/mm3 (4.5-10.0)
--- NOTE | 2021-12-19 07:17 | PM.OBPNVD ---
OB - PN: Subj Subjective Date/time seen: 12/19/21 07:17 Patient comments: no complaints and pain well controlled baby status: doing well and nursing well OB - PN: Obj Data Labs CBC & Chem 7: 12/19/21 04:18 Labs: Laboratory Results - last 24 hr 12/18/21 12/19/21 10:01 04:18 WBC 6.8 RBC 3.60 L Hgb 10.4 L Hct 31.9 L MCV 88.6 MCH 28.9 MCHC 32.6 RDW 15.2 H Plt Count 179 MPV 12.3 H Immature Gran % (Auto) 0.3 Neut % (Auto) 61.3 Lymph % (Auto) 27.2 [place] % (Auto) 10.4 H Eos % (Auto) 0.4 Baso % (Auto) 0.4 Lymph # (Auto) 1.86 [place] # (Auto) 0.7 H Eos # (Auto) 0.0 Baso # (Auto) 0.0 Abs Immat Gran (auto) 0.02 Absolute Neuts (auto) 4.2 Absolute Nucleated RBC 0.0 Nucleated RBC % 0.0 Urine Opiates Screen Negative Urine Methadone Screen Negative Ur Barbiturates Screen Negative Ur Phencyclidine Scrn Negative Ur Amphetamine Screen Negative U Benzodiazepines Scrn Negative Urine Cocaine Screen Negative U Cannabinoids Screen Negative OB - PN A/P Plan day: 1 Plan: routine care Time Spent With Patient Time: Total time spent is greater than 50% in coordination of care (as documented) at patient's floor/unit and/or counseling patient: Time with patient: less than 15 minutes Review of Systems Review of Systems: All systems reviewed & are unremarkable except as noted in HPI and below Exam Const: General: no acute distress Eyes: General: appearance normal, both eyes and all related structures Neck: Neck: supple and no JVD Thyroid: thyroid normal Resp: Effort & Inspection: normal respiratory effort Auscultation: clear to auscultation bilaterally Cardio: Rate: regular rate Rhythm: regular rhythm GI: Inspection: non-distended GI Palp: Yes Soft to palpation, No Tenderness to palpation present (GI) and No Guarding due to palpation present (GI) Auscultation: normal bowel sounds : External Female Exam: normal external appearance Speculum Exam - Vagina: normal appearance of the vagina Skin: General skin exam: no rashes or lesions noted Extrem: General: normal to inspection and no edema Psych: Mental Status: mental status grossly normal Affect: normal affect
[2021-12-19 07:30] VITALS: BP 122/77; PULSE 115; RESP 16; TEMP 36.4; O2SAT 99
[2021-12-19 08:00] VITALS: PULSE 115; RESP 16; O2SAT 99
[2021-12-19] MEDS: IBUPROFEN 600 MG TABLET PO ×3 (08:32→21:40)
[2021-12-19] MEDS: DOCUSATE SODIUM 100 MG CAPSULE PO ×2 (08:32→19:17)
[2021-12-19] MEDS: SIMETHICONE 80 MG TAB.CHEW PO ×2 (08:32→15:16)
[2021-12-19] MEDS: POLYSACCHARIDE IRON COMPLEX 150 MG CAPSULE PO (08:32)
[2021-12-19] MEDS: DIBUCAINE 1% OINTMENT 30 GM TUBE 1 APPLIC (08:32)
[2021-12-19] MEDS: LORATADINE 10 MG TABLET PO (08:32)
[2021-12-19] MEDS: MULTIVIT/MIN/PREN/FOL AC/IRON TABLET 1 TAB PO (08:32)
[2021-12-19] MEDS: HYDROcodone/acetaminophen (*CRX) 10-325 MG TABLET 1 TAB PO ×2 (09:11→15:15)
--- NOTE | 2021-12-19 12:44 | PC.NURSE ---
0915 - Consult with mom. Mother is dozing while infant is getting hearing test. RN will return. 1000 - Mother is on the phone. RN will return. Infant feeding sheet shows baby had a feeding at 0800. 1130 - Consulted with patient, reviewed infant feeding cues, frequencies 8-12 feedings in a 24 hour period, duration of feedings, feeding elimination flow sheet, and signs of adequate intake. Demonstrated stimulation techniques to wake for feeding. Mom demonstrated to breast in football position on the left breast. Reviewed positioning/alignment, holding breast and asymmetrical latch on. Infant was able to latch correctly. Infant nursed eagerly, with steady draws and occasional swallowing noted. Reviewed signs of a correct latch, effective nursing and suck swallow ratio. Infant was able to maintain latch without discomfort to mother. Nipple care reviewed. Instructed mother to call out for RN assistance if she is unable to latch infant for feeding or she has discomfort with nursing. Mother verbalizes she is able to independently latch with appropriate positioning/alignment. She denies any nipple discomfort, is feeding as required and waking infant to feed if needed. has had 6 feedings and supplemented with formula (per mothers request) in the past 24 hours, and is currently meets outcomes for weight, output and jaundice. Mother states she feels confident to continue effective at home tomorrow. Reviewed transition to breast milk, improving milk supply (IBCLC printout), signs of adequate intake, and engorgement/relief. Instructed to call ICP if intake/output less than required or declines feeding two times in a row. Reviewed regular medications mother is taking. Information provided per [employer]. Reviewed community resources and outpatient services in the Mom/Baby guide. Mother has no further questions at this time. Mother voiced understanding of information shared.
--- NOTE | 2021-12-19 18:31 | WPDANLDNPN2 ---
Anes-Prog Note L&D-Neuraxial Date/Time: 12/19/21 18:31 Neuraxial medications: intrathecal PF morphine Opiod-related complaints: none Patient feedback: Patient satisfied with post-operative pain management.
--- NOTE | 2021-12-19 18:31 | WPDANLDPN2 ---
Anes-Prog Note L&D Date/Time: 12/19/21 18:31 Comfortable throughout: section Neuraxial method: spinal Epidural/Spinal procedure site: clean & non-tender Neuro status: Neuro function grossly intact. Cardiovascular status: normal Respiratory status: normal Airway patency: baseline Mental status: baseline Post-Op hydration status: normal Vital Signs: Last Vital Signs Temp 36.4 C 12/19/21 07:30 Pulse 115 H 12/19/21 08:00 Resp 16 12/19/21 08:00 BP 122/77 12/19/21 07:30 Pulse Ox 99 12/19/21 08:00 Pain score (VAS): 0 I/O: Intake & Output 12/19/21 12/19/21 12/19/21 07:59 15:59 23:59 Intake Total 1600 Output Total 3650 500 Balance -2049 -500 Post-procedural complaints: none Patient feedback: Patient satisfied with anesthetic care.
[2021-12-19 19:15] VITALS: BP 141/86; PULSE 98; RESP 18; TEMP 37; O2SAT 97
[2021-12-19] MEDS: HYDROcodone/acetaminophen (*CRX) 5-325 MG TABLET 1 TAB PO (21:41)
[2021-12-20] MEDS: IBUPROFEN 600 MG TABLET PO (04:40)
[2021-12-20] MEDS: HYDROcodone/acetaminophen (*CRX) 5-325 MG TABLET 1 TAB PO (04:40)
--- NOTE | 2021-12-20 07:35 | PM.OBDSVD ---
DS: Admitting Diagnosis Discharge Date 12/20/21 Admitting Diagnosis intrauterine at term prior OB - DS: Summary OB Procedures : None OB Procedures Intrapartum: OB Procedures: : None Peripartum Data Delivery Method: Section Procedures: Procedures Operation Date: 12/18/21 07:30 Actual Procedure Side Surgeon p Section Not Applicable Bruce Rain MD complications: none Status at Discharge Functional status at discharge: independent ambulation Overall status at discharge: patient is progressing back to baseline Time Spent with Patient Time attestation: Total time spent providing and/or coordinating discharge services: Time spent: Less than 30 minutes Exam Const: General: comfortable and no acute distress Resp: Effort & Inspection: normal respiratory effort Auscultation: clear to auscultation bilaterally Cardio: Rate: regular rate GI: Inspection: non-distended GI Palp: Yes Soft to palpation, No Firmness to palpation present (GI), Yes Tenderness to palpation present (GI) (mild tenderness over incision ) and No Guarding due to palpation present (GI) Auscultation: normal bowel sounds Psych: Appearance: grossly normal Mental Status: mental status grossly normal Discharge Plan Discharge Discharging Clinician: Bruce Rain Patient Disposition: Home, Self-Care Activity: as tolerated and pelvic rest Diet: regular Discharge Instructions: Education: Mom and Baby Guide Given to: Mother Follow-Up: Call your delivering provider's office for an appointment to be seen in: 1 Week [facility]. Appointment Date/Time: December 21, 2021 at 11:00 am What to expect at your follow-up visit: Blood Pressure Check Physical Assessment Call [phone] if you are unable to keep your appointment time. BREAST CARE: * Wear a snug supportive bra. * For engorgement discomfort: Breast Feeding: * Apply warm moist washcloths * Express milk as needed to relieve engorgement * Wear loose clothing * For sore nipples: * Identify correct latch-on * Apply warm moist washcloths before and after nursing * Air dry nipples after nursing * May apply Lansinoh cream to nipples ABDOMINAL INCISION: (if applicable) * Allow incision to air dry * Do NOT use lotions for powders on your incision * When showering, allow soap and water to run over the incision, but do not wash incision EPISIOTOMY/PERINEAL CARE: * Until bleeding stops, use your raffi bottle after urinating * Change your pad frequently throughout the day * No tub baths until seen by your physician - You may shower ACTIVITY: * Rest as much as possible. * Do not exercise or lift anything heavier than your baby (such as laundry or other children.) * Avoid stairs or driving as much as possible. * Do not put anything into the vagina. No douching, tampons, or sexual activity until seen by physician. NOTIFY PHYSICIAN IF YOU HAVE ANY QUESTIONS OR IF ANY OF THE FOLLOWING SYMPTOMS OCCUR: * If your incision becomes red, swollen, or more painful than what you have experienced in the hospital. * If your vaginal bleeding becomes foul smelling. * If your vaginal bleeding becomes more heavy than a period or if your bleeding changes from the color it is now to bright crayon red . However, you may pass an occasional walnut-sized clot once or twice for the first week . * If you experience a sharp, shooting pain in your calves. * If you discover a hard, reddened area on your breast or if you experience flu-like symptoms. DIET: * Eat regular, well-balanced meals. * Drink plenty of fluids daily. If , drink to thirst. Patient Instructions: Antibiotic Form, (DC) Stand Alone Forms: General Discharge Informati
[2021-12-20 08:00] VITALS: PULSE 82; RESP 18; O2SAT 99
[2021-12-20 08:30] VITALS: BP 130/83; PULSE 82; RESP 18; TEMP 36.4; O2SAT 99
[2021-12-21 11:16] VITALS: BP 142/87; PULSE 86; RESP 20; TEMP 37; O2SAT 100
== END 2021-12-20 16:15 | disposition home or self-care (01) | DRG 540 ==
LOC: ANHLDR 05:58 → ANHOB2 10:52
PROVIDERS: Admitting Provider Student in an Organized Health Care Education/Training Program; Visit Provider Student in an Organized Health Care Education/Training Program
PROC: 10D00Z1 Extraction of Products of Conception, Low, Open Approach (ICD-10-PCS; CPT 59514; principal; 2021-12-18 07:30)
DX: O34.219 Maternal care for unspecified type scar from previous cesarean delivery (principal); N32.89 Other specified disorders of bladder; O69.81X0 Labor and delivery complicated by cord around neck, without compression, not applicable or unspecified; Z3A.39 39 weeks gestation of pregnancy; Z37.0 Single live birth
CPT/HCPCS: 36415; 80307; 85025; A9270; J0131; J0690; J1885; J2175; J2274; J2370; J2405; J2590; J7120

== ENCOUNTER 2022-02-07 00:15 | Day surgery (SDC) | payer OTHER, SELFPAY ==
[2022-01-31 14:51] VITALS: BMI 29.9
--- NOTE | 2022-01-31 15:02 | PC.NURSE ---
Report to the Outpatient Waiting Room, entrance under the green pavilion located off [facility], at time ____0600___ on date 02/07/2022 . OR Time: . - You and your visitor will be asked a series of questions to screen for COVID 19 for your protection. - A mask is required within the hospital. Preoperative COVID Testing Requirements: No COVID Test needed if: (proof is required; if not received patient will have Rapid Test prior to entry) - Patient has received COVID Vaccine at least 14 days prior to procedure date or - Patient has positive COVID test result within last 90 days of surgery date. 11/28/2021 COVID Test needed if above criteria is not met If not COVID vaccinated a COVID test must be conducted within 72 hours of surgery and patient is asked to isolate self from time of testing until procedure. You will go to the [facility] for your COVID testing. The [facility] is located at the corner of [address] [facility]. You will only be called if COVID results are positive and your surgeon may reschedule your elective surgery date. - No food or drink from midnight until time of surgery per Dr. Montoya. - Infants may have breast milk until 4 hours before surgery, infant formula 6 hours prior to surgery. - Children will be allowed to drink immediately following surgery. If applicable, please bring a bottle or sippy cup to assist with drinking. Juice, water, soda, and popsicles are readily available. For infants on formula, please bring formula the day of surgery. Pacifiers are allowed. Take the following medications with a SIP of water the morning of surgery: _may use inhaler if needed day of surgery Medications to discontinue per physician Date to take last dose Please no make-up, nail kyrgyz, hairspray, perfume, deodorant, or body powder the day of surgery. No jewelry (including any body piercings) or valuables the day of surgery, leave them at home. Please take a shower or bath the night before, or the morning of, surgery with an antibacterial soap. Wear comfortable, loose fitting clothing. Children are encouraged to wear pajamas. - Jewelry must be removed prior to entering the operating room. Rings and piercings that are not removed may be cut off. - The hospital will not accept responsibility for valuables. - Please leave all valuables, including medications, at home the day of surgery. If you are going home after surgery, a licensed cdl a driver must drive you home. - NO public transportation without another adult. - We recommend that an adult stay with you for 24 hours following discharge. - We also recommend that you do not drive, make important decision, drink alcoholic beverages, or take any drugs that were not prescribed by your health care provider for at least 24 hours after your discharge time. For Pediatric surgeries, we recommend two adults accompany the child home (only one inside the building at this time). One visitor will be allowed to accompany the patient into the hospital. Patients visitor will be instructed to remain with patient at all times or leave the building. We will allow the visitor to come back to the postoperative area when patient is ready. Follow any additional instructions given to you from your surgeon. Telephone instructions given to __patient and asked if any additional questions and then verbalized understanding. Patient advised to call surgeon office or pre surgery nurse liaison [phone] if any additional questions.
--- NOTE | 2022-02-06 12:51 | WPDANESEPPF ---
Anes - Initial Pre Proc Eval Procedure: Operation Date: 02/07/22 07:30 Proposed Procedures p Hemorrhoidectomy, Rectal Exam Under Anesthesia - Stephanie Montoya MD Date/Time: 02/06/22 12:51 Surgeon: Stephanie Montoya MD Pre Op Diagnosis: External Thrombosed Hemorrhoids Patient Data Age: 31 Gender: F Height: 1.65 m Weight: 81.65 kg Allergies Allergy/AdvReac Type Severity Reaction Status Date / Time adhesive tape Allergy Mild HIVES/RASH Verified 02/07/22 06:15 ES Home Medications Medication Instructions Recorded Confirmed Type albuterol sulfate 2 inh INHALATION Q4-6H PRN 12/18/21 02/07/22 History hydrocortisone 2.5 % topical cream 1 applic RECTAL DAILY PRN #30 g 01/23/22 02/07/22 Rx with perineal applicator Patient hx anesthesia problems: none Family hx anesthesia problems: none Results Review: All pre-operative results and documents have been reviewed as part of the pre-operative evaluation. [facility] Past Medical History Medical History Asthma Intrauterine Surgical History Surgical History H/O section Family History Family History Other No pertinent family history Social History Social History Smoking status: Never smoker Second hand tobacco smoke exposure: No Alcohol intake: never Substance use: former Substance use type: marijuana Last use: 11/2020 Living arrangements: alone Gender identity (if verbalized by the patient): Female Spiritual care concerns: No Anes - Eval Final PreProcedure Day of Procedure 02/06/22 12:52 Patient weight: obese Heart: regular rate and rhythm Lungs: clear to auscultation and normal air movement Airway: Mallampati scale class II Neurological: alert and oriented Last oral intake: >/= 8 hours ASA classification: II Emergent: no Anesthetic plan: proceed Anesthesia type and monitoring: general LMA and standard monitoring Results Review: All pre-operative results and documents have been reviewed as part of the pre-operative evaluation. Informed Consent: The patient's anesthetic plan and its attendant risks and benefits were discussed with the patient/family/POA. Questions were solicited and answers provided to the satisfaction of the patient/family/POA.
[2022-02-07] VITALS (9 sets, daily range): BP systolic 105–134; BP diastolic 50–88; PULSE 76–112; RESP 10–20; TEMP 36.2; O2SAT 97–99
[2022-02-07] MEDS: ACETAMINOPHEN 500 MG TABLET 1000 MG PO (06:47)
[2022-02-07] MEDS: LACTATED RINGERS 1,000 ML 30 ML IV CONT (06:47)
[2022-02-07] MEDS: KETOROLAC 15 MG/ML VIAL (*BKC) IV PUSH (06:47)
--- NOTE | 2022-02-07 07:22 | WPDHPUPDATE1 ---
History and Physical Update Update Date/Time: 02/07/22 07:22 History and Physical has been reviewed, including an updated exam of the patient. There are NO changes in the patient's condition. Risks, benefits, and alternatives have been discussed and questions answered. Patient agrees to proceed with procedure.
[2022-02-07] MEDS: ceFAZolin 2 GM/D5W 50 ML 2 GM/50 ML BAG IVPB (07:30)
[2022-02-07] MEDS: LIDOCAINE HCL 2% GEL UROJET 10 ML PKG MUCOUS MEM (07:55)
--- NOTE | 2022-02-07 08:43 | W.PM.PROC2 ---
Procedure Note - Detailed Date of Procedure 02/07/22 Pre-op Diagnosis External Thrombosed Hemorrhoids Post-op Diagnosis Same Procedure Performed Exam under anesthesia, external hemorrhoidectomy involving left lateral and right anterior positions Surgeon Stephanie Montoya MD Anesthesia General and Local Indications 31 y/o F c multiple thrombosed external hemorrhoids causing significant discomfort Findings multiple thrombosed external hemorrhoids Description of Procedure The patient was taken to the operating room and placed in the modified lithotomy position. After adequate induction of general anesthesia, the patient was prepped and draped in the normal sterile fashion. A time-out was then done to verify the patient's identity, as well as the procedure being performed. I began by doing a digital exam. There was noted to be multiple external hemorrhoids, however no internal hemorrhoids were noted. At this point, a bilateral pudendal block was done. I then used the lone Star retractor to further evaluate the anal canal as well as rectum, other than multiple thrombosed external hemorrhoids no other pathology was noted. I then began excising the external hemorrhoids using the hand-held LigaSure device. The hemorrhoids were noted to be in the left lateral and right anterior positions. Multiple hemorrhoids were excised using the LigaSure. The specimens will be sent to pathology for further review. Hemostasis was noted at all excision sites. I then placed a piece of Gelfoam covered with lidocaine jelly into the rectal vault. The patient tolerated the procedure and was extubated in the operating room postop. She will be transferred to the recovery room in stable condition. Implants Gelfoam covered with lidocaine jelly in the rectal vault Estimated Blood Loss 10 Drains No Packing Yes Pathology Yes Complications No immediate complications Condition Stable Disposition PACU
== END 2022-02-07 09:15 | disposition home or self-care (01) ==
PROVIDERS: Visit Provider Surgery
PROC: (CPT 46320; principal; 2022-02-07 07:30)
DX: K64.5 Perianal venous thrombosis (principal); J45.909 Unspecified asthma, uncomplicated; Z79.51 Long term (current) use of inhaled steroids; E66.9 Obesity, unspecified; Z68.30 Body mass index [BMI] 30.0-30.9, adult
CPT/HCPCS: 46320 ×2; 88304; A9270; J0690; J1885; J2250; J2405; J2704; J3010; J7120

== ENCOUNTER 2025-04-15 12:19 | Emergency (ER) | payer OTHER, SELFPAY ==
[2025-04-15 12:28] VITALS: BP 119/79; PULSE 89; RESP 20; TEMP 36.6; O2SAT 98
--- NOTE | 2025-04-15 13:21 | ED_ITS ---
HPI - General Adult General Chief complaint: Abdominal Pain Stated complaint: Abdominal Pain/ Butt Skin Issues Time Seen by Provider: 04/15/25 12:22 Source: patient Mode of arrival: ambulatory Limitations: no limitations History of Present Illness HPI narrative: Patient is a 34-year-old female who presents with 4 days of persistent diarrhea. Patient reported 1 episode of blood in stool but reports the next bowel movement was normal with no blood. Patient has history of hemorrhoidectomy in 02/20. Patient has been using tucks pads, preparation H, and Sitz bath. Patient takes MiraLax, Benefiber and stool softeners daily. Reports her perineum feels raw. Was reports abdominal cramping Related Data Home Medications Medication Instructions Recorded Confirmed Last Taken Type albuterol sulfate 90 mcg/actuation 2 inh inhalation Q4-6H PRN 12/18/21 02/27/22 Unknown History aerosol inhaler Shortness Of Breath Allergies Allergy/AdvReac Type Severity Reaction Status Date / Time adhesive tape Allergy Mild HIVES/RASH Verified 04/15/25 12:22 ES Review of Systems Review of Systems: All systems reviewed & are unremarkable except as noted in HPI and below Constitutional: Constitutional: Denies body ache(s), Denies chills, Denies fatigue, Denies fever(s), Denies headache(s), Denies malaise and Denies weakness Eyes: Eyes: Denies blurry vision, Denies irritation and Denies loss of vision ENT: Denies otalgia, Denies headache(s), Denies nasal discharge, Denies sinus pain and Denies sore throat Cardiovascular: Cardiovascular: Denies chest pain, Denies irregular heart rhythm and Denies dyspnea Respiratory: Respiratory: Denies dyspnea Gastrointestinal: Gastrointestinal: Reports abdominal pain, Denies melena, Denies hematochezia, Reports diarrhea, Reports nausea and Reports vomiting Musculoskeletal: Musculoskeletal: Denies back pain, Denies myalgias and Denies arthralgias Integumentary/Breasts: Skin/Breast: Denies pruritus and Denies rash Neurologic: Denies headache(s), Denies loss of vision and Denies weakness Psychiatric: Psychiatric: Reports no additional psychiatric complaints Endocrine: Endocrine: Denies fatigue PMFSH Past Medical History Medical History Asthma Intrauterine Surgical History Surgical History H/O section Family History Family History Other No pertinent family history Social History Social History Smoking status: Never smoker Second hand tobacco smoke exposure: No Alcohol intake: never Substance use: former Substance use type: marijuana Last use: 11/2020 Living arrangements: alone Gender identity (if verbalized by the patient): Female Spiritual care concerns: No Comments At time of signature, agree with nursing past medical, surgical, social and family history. There is no relevant family history pertinent to the presenting complaint. Exam Const: General: cooperative, healthy appearing, comfortable, no acute distress and well nourished Nutritional Appearance: well nourished Orientation/consciousness: patient oriented x3 Limitations: no limitations HENMT: Head: normal to inspection, normocephalic and atraumatic Ears: hearing grossly normal bilaterally and external ears normal Face/Nose/Sinus: Normal external nose present, normal facial exam and face symmetric Face and sinus: normal facial exam and face symmetric Mouth: Yes lip normal Eyes: General: appearance normal, both eyes and all related structures Alignment and Position: alignment normal and position normal Periorbital: periorbital findings normal Eyelids: eyelids normal Pupils: Equal, round and reactive pupils present EOM: EOMs intact bilaterally Neck: Neck: normal visual inspection, full ROM and supple Chest: Chest palpation & inspection: normal inspection of the chest Resp: Effort & Inspection: normal respiratory effort and able to speak in complete sentences Auscultation: clear to auscultation bilaterally Cardio: Rate: regular rate Rhythm: regular rhythm Heart sounds: S1 normal heart sound present and S2 normal heart sound present GI: Inspection: normal to inspection GI Palp: No abdominal tenderness, Yes Soft to palpation and No Guarding due to palpation present (GI) Auscultation: normal bowel sounds Rectal Exam: deferred Skin: General skin exam: normal color and no rashes or lesions noted Neuro: General: patient oriented x3 and moves all extremities Cranial nerves: Yes Equal, round and reactive pupils present Speech: normal speech Gait exam (Neuro): Normal gait present Extrem: General: normal to inspection, full ROM and no edema Psych: Appearance: grossly normal and well kempt Mental Status: mental status grossly normal Speech and movement: Normal speech and movement present Affect: normal affect Attitude: cooperative Thought process: Normal thought process present Course Course Emergency Course: Patient is aware of diagnosis, understands and agrees to treatment plan. Anticipatory guidance given. Patient agrees to follow-up as directed and is aware of reasons to seek care at the emergency department. Portions of this record may have been created with voice recognition software Level of Care: Express Care Visit Vital Signs Vital signs: Vital Signs Temperature 36.6 C 04/15/25 12:28 Pulse Rate 89 04/15/25 12:28 Respiratory Rate 20 04/15/25 12:28 Blood Pressure 119/79 04/15/25 12:28 Pulse Oximetry 98 04/15/25 12:28 Oxygen Delivery Room Air 04/15/25 12:28 Temperature 36.6 C 04/15/25 12:28 Pulse Rate 89 04/15/25 12:28 Respiratory Rate 20 04/15/25 12:28 Blood Pressure 119/79 04/15/25 12:28 Pulse Oximetry 98 04/15/25 12:28 Oxygen Delivery Room Air 04/15/25 12:28 Reviewed Medical Decision Making MDM Narrative Medical decision making narrative: Pt well hydrated appearing, in no respiratory distress, hemodynamically stable. Recommend supportive care. The patient is stable at time of discharge the clinical impression was discussed and the patient was given the opportunity to ask questions, which were addressed as completely as possible given the information available at present. Anticipatory guidance and return to care precautions were discussed and the importance of primary care follow-up was stressed and encouraged. The patient voiced understanding of the plan, indications to return, and the need for follow-up. Exam findings show no acute concerns or changes Patient is appropriate for outpatient treatment and follow-up. Differential Diagnosis Differential Diagnosis: Gastroenteritis, food poisoning, hemorrhoid, IBS Medical Records Medical records reviewed: Yes I reviewed the external patient's medical records. Vital Signs Vital Signs: Vital Signs Temperature 36.6 C 04/15/25 12:28 Pulse Rate 89 04/15/25 12:28 Respiratory Rate 20 04/15/25 12:28 Blood Pressure 119/79 04/15/25 12:28 Pulse Oximetry 98 04/15/25 12:28 Oxygen Delivery Room Air 04/15/25 12:28 Temperature 36.6 C 04/15/25 12:28 Pulse Rate 89 04/15/25 12:28 Respiratory Rate 20 04/15/25 12:28 Blood Pressure 119/79 04/15/25 12:28 Pulse Oximetry 98 04/15/25 12:28 Oxygen Delivery Room Air 04/15/25 12:28 Reviewed Discharge Plan Discharge Clinical Impression: Gastroenteritis Patient Disposition: Home Condition: Stable Instructions: Gastroenteritis (ED) Additional Instructions: Stay hydrated. Take small sips of fluid containing electrolytes frequently(Body [place]ver[place], Gatorade, Powerade, liquid IV). Eat small meals that her very bland including bananas, applesauce, rice, toast, boiled or grilled chicken, soup. Do not eat anything fried, spicy or overly acidic. You should go to the hospital if you experience return of persistent nausea and vomiting that does not resolve and does not allow you to tolerate any food or fluids, persistent fevers for greater than 2-3 more days, increasing abdominal pain that persists despite medications, persistent diarrhea, dizziness, syncope (fainting), or for any o ther concerns. If you are having a hard time finding a physician please call our [facility] group liaison at [phone]. Patient Language: Anguill[place] Prescriptions: New dicyclomine 20 mg tablet 20 mg PO QID 7 Days Qty: 28 0RF ondansetron 4 mg tablet,disintegrating 4 mg PO Q6-8H PRN (Reason: nausea and vomiting) Qty: 7 0RF No Action hydrocodone-acetaminophen 5-325 mg tablet 1 tablet PO Q6H PRN (Reason: pain) Qty: 30 0RF docusate sodium [Colace] 100 mg capsule 100 mg PO BID Qty: 30 0RF albuterol sulfate 90 mcg/actuation HFA aerosol inhaler 2 inh INHALATION Q4-6H PRN (Reason: Shortness Of Breath) Follow-up/Referrals: Adriana Tay MD [Physician] - 3 Days (OBGYN follow-up) Suhail Becker MD [Physician] - 3 Days (Establish care) Stand Alone Forms: Work/School Release IP Time of Disposition: 13:45
== END 2025-04-15 13:50 | disposition home or self-care (01) ==
PROVIDERS: Emergency Provider Nurse Practitioner Family
DX: K52.9 Noninfective gastroenteritis and colitis, unspecified (principal)
CPT/HCPCS: 99213; G0463

== ENCOUNTER 2025-05-31 12:00 | Emergency (ER) | payer OTHER, SELFPAY ==
--- NOTE | ~2025-05-31 | XR_ITS ---
EXAMINATION: XR chest 1V portable Exam Date/Time: 05/31/2025 15:55 CDT HISTORY: URI/ASTHMA Comparison: 03/13/2017. RESULT: Lines, tubes, and devices: None. Lungs and pleura: Clear. Cardiomediastinal silhouette: Stable. Other: No acute osseous or upper abdominal finding. IMPRESSION: No acute cardiopulmonary process. Reviewed, dictated and finalized at location K.
--- OUTSIDE RECORDS SUMMARY | 2025-05-31 12:04 | XMS_ITS | Clinical Summary ---
Author Organization [facility] Address [address] [place] [address] Phone Care Team Providers Care Medical Supply Technician Name Role Phone Provider, Unknown Primary Care Provider Unavaila ble Social History Tobacco Use Types Packs/Day Years Used Date Smoking Tobacco: Never Assessed Comments Unknown Sex and Gender Information Value Date Recorded Sex Assigned at Not on file Legal Sex Female 7:45 PM CDT Gender Identity Not on file Sexual Orientation Not on file Plan of Treatment Not on file Care Teams Medical Supply Technician Relationship Specialty Start Date End Date Provider, Unknown UNKNOWN PCP - General 03/05/17
--- OUTSIDE RECORDS SUMMARY | 2025-05-31 12:04 | XMS_ITS | Data Portability ---
Author Organization [facility] Lenin MOTTA Address [address] [place] [address] Care Team Providers Care Bell Maker Name Role Phone IJEOMA PRADO Auto Wash Buffer Assessment No assessment recorded. Plan of Treatment Reminders Order Date Submit Date Provider Last Modified By Organization Details Last Modified Time Details Appointments None recorded. Lab urinalysi s, dipstick 2015 016 [id number] [id number] In-Office Order, Internal Use Only DO Not Attach Compendium DO Not Attach Compendium, Do Not Delete/merge, [id number] 04:30:04 test, urine 2014 015 kun In-Office Order, Internal Use Only DO Not Attach Compendium DO Not Attach Compendium, Do Not Delete/merge, [id number] 16:39:43 test, urine 2014 015 kun In-Office Order, Internal Use Only DO Not Attach Compendium DO Not Attach Compendium, Do Not Delete/merge, [id number] 17:35:41 CT + NG + TV, DNA, urine/swa b 2014 015 [facility], [address] [place] [address], [address], [place], [address], 5 09:25:56 Referral None recorded. Procedures None recorded. Surgeries None recorded. Imaging None recorded. Medication Orders fluoxetin e 10 mg capsule 2016 017 [facility] #[id number], [address], [place], [place], [id number], 7 14:35:25 albuterol sulfate HFA 90 mcg/actua tion aerosol inhaler 2015 016 [facility] #[id number], [address], [place], [place], [id number], 7 14:36:06 buspirone 10 mg tablet 2015 016 [facility] #[id number], [address], [place], [place], [id number], 7 15:23:42 Nexplanon 68 mg subdermal implant 2014 015 eewig Not available 6 14:42:19 Patient TargetsNo targets recorded. Patient Instructions Encounter Date Encounter Id Patient Instructions Last Modified By Organization Details Last Modified Time 09/26/2016 [id number] RTC at [facility] with vaccine record eewig Not available 09/26/2016 15:28:40 Will sign TRAE fo r recent pap smears and labs from [facility] [place] eewig Not available 09/26/2016 15:01:45 Reason for Referral None Reported. Results Created Date Observation Date Name Description Value Unit Range Abnormal Flag Note LastModifiedBy Organization Detail LastModifiedTime 09/26/20 16 09/26/2016 urina lysis , dipst ick Leukocytes Negati ve Not Available In-Office Order Internal Use Only DO Not Attach Compendium DO Not Attach Compendium, Do Not Delete/merge, [id number] 09/26/2016 14:30:57 09/26/20 16 09/26/2016 urina lysis , dipst ick Nitrite negati ve Not Available In-Office Order Internal Use Only DO Not Attach Compendium DO Not Attach Compendium, Do Not Delete/merge, [id number] 09/26/2016 14:30:57 09/26/20 16 09/26/2016 urina lysis , dipst ick Urobilinogen 1 Not Available In-Of fice Order Internal Use Only DO Not Attach Compendium DO Not Attach Compendium, Do Not Delete/merge, 09/26/2016 14:30:57 09/26/20 16 09/26/2016 urina lysis , dipst ick Protein Negati ve Not Available In-Office Order Internal Use Only DO Not Attach Compendium DO Not Attach Compendium, Do Not Delete/merge, 09/26/2016 14:30:57 09/26/20 16 09/26/2016 urina lysis , dipst ick pH 6.0 Not Available In-Office Order Internal Use Only DO Not Attach Compendium DO Not Attach Compendium, Do Not Delete/merge, 09/26/2016 14:30:57 09/26/20 16 09/26/2016 urina lysis , dipst ick Blood Hemoly zed: Trace Not Available In-Office Order Internal Use Only DO Not Attach Compendium DO Not Attach Compendium, Do Not Delete/merge, 09/26/2016 14:30:57 09/26/20 16 09/26/2016 urina lysis , dipst ick Specific [place] 1.020 Not Available In-Off ice Order Internal Use Only DO Not Attach Compendium DO Not Attach Compendium, Do Not Delete/merge, 09/26/2016 14:30:57 09/26/20 16 09/26/2016 urina lysis , dipst ick Ketone Negati ve Not Available In-Office Order Internal Use Only DO Not Attach Compendium DO Not Attach Compendium, Do Not Delete/merge, 09/26/2016 14:30:57 09/26/20 16 09/26/2016 urina lysis , dipst ick Bilirubin Negati ve Not Available In-Office Order Internal Use Only DO Not Attach Compendium DO Not Attach Compendium, Do Not Delete/merge, 09/26/2016 14:30:57 09/26/20 16 09/26/2016 urina lysis , dipst ick Glucose Negati ve Not Available In-Office Order Internal Use Only DO Not Attach Compendium DO Not Attach Compendium, Do Not Delete/merge, 09/26/2016 14:30:57 09/26/20 16 09/26/2016 urina lysis , dipst ick Appearance Clear Not Available In-Offi ce Order Internal Use Only DO Not Attach Compendium DO Not Attach Compendium, Do Not Delete/merge, [id number] 09/26/2016 14:30:57 09/26/20 16 09/26/2016 urina lysis , dipst ick Color Yellow Not Available In-Office Order Internal Use Only DO Not Attach Compendium DO Not Attach Compendium, Do Not Delete/merge, [id number] 09/26/2016 14:30:57 06/27/20 15 06/27/2015 pregn pema test, urine HCG negati ve Not Available In-Office Order Internal Use Only DO Not Attach Compendium DO Not Attach Compendium, Do Not Delete/merge, [id number] 06/27/2015 15:39:15 05/12/20 15 05/12/2015 pregn pema test, urine HCG negati ve Not Available In-Office Order Internal Use Only DO Not Attach Compendium DO Not Attach Compendium, Do Not Delete/merge, [id number] 05/12/2015 15:26:52 05/12/20 15 05/13/2015 CT + NG + TV, DNA, urine /swab trich vag by CECELIA NEGATI VE negati ve Not Available [facility] ([facility]) [address] [place], [address], 05/14/2015 09:25:56 05/12/20 15 05/14/2015 CT + NG + TV, DNA, urine /swab chlamydia by CECELIA NEGATI VE negati ve Not Available [facility] ([facility]) [address] [place], [address], 05/14/2015 09:25:56 05/12/20 15 05/14/2015 CT + NG + TV, DNA, urine /swab gonococcus by CECELIA NEGATI VE negati ve Not Available [facility] ([facility]) [address] [place], [address], 05/14/2015 09:25:56 08/19/[address], abdom en + pelvi s, w/o contr ast No observ ation record ed. [email or web address] Not Available 08/02 10:58:43 01/19/20 18 01/19/2018 XR, chest , 2 view No observ ation record ed. [email or web address] [facility] (Im[facility]) [address] [place], [address], 01/20/2018 11:19:12 02/26/20 18 02/25/2018 CT, head, w/o contr ast No observ ation record ed. shey [facility] ([facility]) [address] [place], [address], 02/25/2018 15:02:54 09/03/20 18 08/19/2018 eye exam* No observ ation record ed. [email or web address] Not Available 03/2018 20:57:45 Result Notes None recorded. Problems Name Problem SNOMED Code Status Onset Date Resolution Date Notes Provider Name and Address Organization Details Recorded Time Complete Active Bj Calderon [place] 5 10:04:05 Depressive disorder 80309843 Active 2015 Soo Puri [place] [facility] 6 14:32:32 Multiple environmental allergies Active 2015 Soo Puri [place] [facility] 6 14:32:42 Anxiety 71053032 Active 2015 CHARMAINE Valenzuela[place] [facility] 6 14:32:50 Asthma 378213370 Active 2015 CHARMAINE Val[place] [facility] 6 14:32:59 Problem Notes None recorded. Procedures Surgical History Date Name Laterality Status Provider Name and Address Organization Details Recorded Time 5 Control Implant Insertion completed CHARMAINE Terrazas [facility] 05/12/2015 15:45:02 5 Date of Last Pap Smear completed CHARMAINE Terrazas - [facility] 05/12/2015 15:25:22 5 Dilation and Curettage completed CHARMAINE Terrazas - [facility] 05/12/2015 15:25:22 2 Breast Surgery completed Tasneem CHARMAINE San [facility] 05/12/2015 15:25:22 Caesarean Section completed Soo Puri MA [facility] 09/26/2016 14:33:11 Imaging Results None recorded. Procedure Notes None recorded. Medical Equipment None Reported. Allergies Allergen ID Allergen Name Allergen Category Reaction Reaction Severity Criticality Documentation Date Start Date Code Code System Note Provider Name and Address Organization Details Recorded Time 19636 adhesive environme nt,medica tion rash severe Not available 05/12/2015 87376 UNK surgi micaela tape CHARMAINE Terrazas, [facility] 5 15:30:02 88102 Unable to Assess Not available rash Not available Not available 05/12/2015 16265 UNK patie nt is aller gic to bleac h Tasneem San CHARMAINE brittany, [facility] 5 15:42:04 Medications Name Sig Start Date Stop Date Status Note LastModified by Organization Details LastModified Time amoxicillin 500 mg capsule 02/20 completed Not Available Not Available Not Available albuterol sulfate 2.5 mg/3 mL (0.083 %) solution for nebulizatio n active Not Available Not Available Not Available ibuprofen 800 mg tablet TAKE 1 TABLET BY MOUTH THREE TIMES DAILY NEEDED FOR CRAMPS 09/26 completed Not Available Not Available Not Available Lidocaine Viscous 2 % mucosal solution 08/27 completed Not Available Not Available Not Available fluconazole 150 mg tablet 08/27 completed Not Available Not Available Not Available sumatriptan 100 mg tablet active Not Available Not Available Not Available hydrocodone 5 mg-acetamin ophen 325 mg tablet 08/27 completed Not Available Not Available Not Available sumatriptan 25 mg tablet 09/26 completed Not Available Not Available Not Available metronidazo le 0.75 % (37.5 mg/5 gram) vaginal gel active Not Available Not Available Not Available ondansetron HCl 4 mg tablet 09/26 completed Not Available Not Available Not Available prednisone 20 mg tablet 02/20 completed Not Available Not Available Not Available penicillin V potassium 500 mg tablet 02/20 completed Not Available Not Available Not Available ciprofloxac in 500 mg tablet 09/26 completed Not Available Not Available Not Available sulfamethox azole 800 mg-trimetho prim 160 mg tablet 09/26 completed Not Available Not Available Not Available tramadol 50 mg tablet 09/26 completed Not Available Not Available Not Available ketorolac 10 mg tablet 08/27 completed Not Available Not Available Not Available Vitamin tablet Take 1 tablet every day by oral route as directed. 2014 active Not Available Not Available Not Avai lable meloxicam 7.5 mg tablet 09/26 completed Not Available Not Available Not Available oxycodone-a cetaminophe n 5 mg-325 mg tablet Take 1 tablet every 6 hours by oral route. 09/26 completed Not Available Not Available Not Available Microgestin FE / (28) 1 mg-20 mcg (21)/75 mg (7) tablet active Not Available Not Available N ot Available amoxicillin 875 mg tablet 08/27 completed Not Available Not Available Not Available tamsulosin 0.4 mg capsule 08/27 completed Not Available Not Available Not Available meclizine 25 mg tablet 08/27 completed Not Available Not Available Not Available hydrocodone 7.5 mg-acetamin ophen 325 mg tablet active Not Available Not Available No t Available naproxen sodium 550 mg tablet 09/26 completed Not Available Not Available Not Available ferrous sulfate 325 mg (65 mg iron) tablet Take 1 tablet twice a day by oral route. 09/26 completed Not Available Not Available Not Available buspirone 10 mg tablet Take 1 tablet by oral route. 02/20 completed Not Available Not Available Not Available fluoxetine 10 mg capsule TAKE 1 CAPSULE BY MOUTH EVERY DAY 08/27 completed Not Available Not Available Not Available ibuprofen 600 mg tablet active Not Available Not Available Not Available ondansetron 4 mg disintegrat ing tablet 08/27 completed Not Available Not Available Not Available fluticasone propionate 50 mcg/actuati on nasal spray,suspe nsion active Not Available Not Available Not Available naproxen 500 mg tablet active Not Available Not Available Not Available Ventolin HFA 90 mcg/actuati on aerosol inhaler Inhale 2 puffs every 4 hours by inhalatio n route. active Not Available Not Available No t Available NuvaRing 0.12 mg-0.015 mg/24 hr vaginal active Not Available Not Available Not Available azithromyci n 500 mg tablet 09/26 completed Not Available Not Available Not Available cyclobenzap rine 5 mg tablet 09/26 completed Not Available Not Available Not Available chlorhexidi ne gluconate 0.12 % mouthwash active Not Available Not Available No t Available Nexplanon 68 mg subdermal implant Inject 1 implant by subcutane ous route. 09/26 completed Not Available Not Available Not Available Arnuity Ellipta 100 mcg/actuati on powder for inhalation active Not Available Not Available N ot Available Vitals Date Recorded Body height Body weight Body mass index (BMI) Heart rate Respiratory rate Systolic blood pressure Diastolic blood pressure Provider Name and Address Organization Details Last Updated DateTime 7 165.74 cm 13085.8 9 g 28.2 kg/m2 68 /min 12 /min 136 mm[Hg] 78 mm[Hg] Alban Pak [facility] 7 15:03:30 Date Recorded Body height Body mass index (BMI) Body weight Systolic blood pressure Diastolic blood pressure Provider Name and Address Organization Details Last Updated DateTime 05/12/2015 160.02 cm 26.4 kg/m2 89471.26 313 g 112 mm[Hg] 80 mm[Hg] Tasneem San MA [facility] 5 15:26:37 Date Recorded Body weight Body height Body mass index (BMI) Systolic blood pressure Diastolic blood pressure Provider Name and Address Organization Details Last Updated DateTime 06/27/2015 35429.44 787 g 160.02 cm 26.7 kg/m2 110 mm[Hg] 76 mm[Hg] Tasneem San MA [facility] 5 15:37:17 Date Recorded Body height Body mass index (BMI) Body weight Oxygen saturation Oxygen saturation in Arterial blood by Pulse oximetry Heart rate Body temperature Systolic blood pressure Diastolic blood pressure Provider Name and Address Organization Details Last Updated DateTime 7 165.74 cm 29 kg/m2 70304.8 5 g 99 % 99 % 79 /min 98.6 [degF] 122 mm[Hg] 70 mm[Hg] Melanie Mclaughlin MA [facility] 7 14:27:32 Date Recorded Body height Body weight Body mass index (BMI) Heart rate Respiratory rate Body temperature Systolic blood pressure Diastolic blood pressure Provider Name and Address Organization Details Last Updated DateTime 6 165.74 cm 34651.8 9 g 28.4 kg/m2 84 /min 20 /min 98.2 [degF] 106 mm[Hg] 78 mm[Hg] Soo Puri MA [facility] 6 14:22:20 Social History Question Answer Notes LastModified by Organizat ion Details LastModified Time Tobacco Smoking Status Never Smoker Tasneem CHARMAINE [place] null, [place] - [facility] 05/12/2015 15:25:22 What Is Your Level Of Caffeine Consumption? Occasional Information not available 09/26/2016 What Type Of Diet Are You Following? REGULAR Information not available 09/26/2016 Which Illicit Or Recreational Drugs Have You Used? 0 Information not available 09/26/2016 Education 12 GED Information no t available 09/26/2016 Are There Any Guns Present In Your Home? No Information not available 09/26/2016 Hard Of Hearing Or Deaf In One Or Both Ears? No Information not available 09/26/2016 Legally Blind In One Or Both Eyes? No Information not available 09/26/2016 Live Alone Or With Others? With Others Her Son Information not available 09/26/2016 Preferred Name Kelly fontenot Informatio n not available 05/12/2015 Sex Assigned At Female Information not available 05/12/2015 In School? Yes Information no t available 05/12/2015 Highest Grade Completed 11 Information not available 05/12/2015 Ages Of Your Children 3 Information not available 05/12/2015 Lives With Parents Information no t available 05/12/2015 Interests/Hobbie s 0 Information not available 05/12/2015 How Life Is Going Good Information not available 05/12/2015 Life Going Well In General Yes Information not available 05/12/2015 Needs Help With Counseling/issue s/referrals No Information not available 05/12/2015 Habits Nail Bitting Information not available 05/12/2015 How Long Using Tobacco 0 Information not available 05/12/2015 If Using Tobacco, Want Help Quitting? No Information not available 05/12/2015 # Alcohol Drinks Per Week 1 Information not available 05/12/2015 # Alcohol Drinks/day 0 Information not available 05/12/2015 Sexual Attraction Opposite Sex Information not available 05/12/2015 Have You Ever Had Sex? Yes Information not available 05/12/2015 # Sex Partners Had 4 Information not available 05/12/2015 Teen No Information no t available 05/12/2015 Parents Aware Of Sexual Activity? Yes Information not available 05/12/2015 Parents Aware Coming To Clinic? Yes Information not available 05/12/2015 Can Talk To Parents About Personal Things In Life? Yes Information not available 05/12/2015 Date Of Last Pap? 01/02/2015 Information not available 05/12/2015 Current Gender Identity Female Information not available 05/12/2015 Marital Status Single Informatio n not available 05/12/2015 What Was The Date Of Your Most Recent Tobacco Screening? 08/27/2017 Information not available 06/25/2019 How Many Children Do You Have? 1 Father Is Not In His Life Information not available 09/26/2016 Are You Sexually Active? No Information not available 05/12/2015 How Much Tobacco Do You Smoke? No Information not available 05/12/2015 General Stress Level High Information not available 09/26/2016 How Many Years Have You Smoked Tobacco? 0 Information not available 05/12/2015 Sex: Unknown Functional Status Question Answer Note LastModified by Organizat ion Details LastModified Time What is your level of alcohol consumption? Occasional Information not available 05/12/2015 Are you currently employed? 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 Occasional Information not available 09/26/2016 Mental Status None recorded. Family History Relationship Description Onset Age of this Age Resolved Age Notes LastModified by Organization Details LastModified Time Maternal Grandfather Malignant neoplasm of liver [email or web address] Not available 06/27 16:38:00 Mother Asthma [email or web address] Not available 09/26/2016 14:33:36 Brother Attention deficit hyperactivit y disorder [email or web address] Not available 09/26 14:33:58 Medical History Condition Response Heart Problems N Other N Breast Cancer N Thyroid Problems N Kidney or Bladder Problems N GI Problems N Lung Disease N Depression N Acne N Breast Problem N Eating Disorder N Anemia N Anesthesia Complications N Headaches/Migraines N Anxiety Disorder N Diabetes N Ovarian Cancer N Blood Transfusions N Arthritis N Polyps N Infertility N Acid Reflux (GERD) N Cancer N Stroke N Abuse/Domestic Violence N Asthma N Endometriosis N High Cholesterol N Hepatitis N Heart Disease N Fibromyalgia N Pre-Eclampsia N Hypertension N Osteoporosis N Kidney Disease N Gynecological History Statement/Question Response Abnormal Pap N Flow Moderate On BCP's at Conception? Y STIs/STDs Y HPV Vaccine Y Age at Menarche 17 Current Control Method None Age at First Child 21 Frequency of Cycle (Q days) 7 Sexually Active? N Menses Monthly Y Date of Last Pap Smear 01/02/2015 Sexual Problems? N LMP Approximate Desired Control Method IUD Obstetrics History GPAL:G 3 P 0 0 1 1 Type Value Spontaneous 1 Living 1 Total 3 Immunizations Vaccine Type Date Status Note Provider Nam e and Address Organization Details Recorded Time Influenza, split virus, quadrivalent, preservative 6 completed Not Available [facility] 12/19/2019 02:32:36 Past Encounters Encounter ID Performer Location Encounter Start Date Encounter Closed Date Diagnosis/Indication Diagnosis SNOMED-CT Code Diagnosis ICD10 Code Diagnosis Note [id number] MD Juwan Blancas ([employer]) [address] [place] [id number] 05/12/2015 14:43:32 05/12/2015 15:46:00 Implantation of subcutaneous contraceptive 786421716 [id number] MD Juwan Blancas ([employer]) [address] [place] [id number] 06/27/2015 14:59:11 06/27/2015 16:57:56 Subcutaneous contraceptive implant palpable 090555973 [id number] MD Juwan Mckinley (Adult Med) [address] [place] [phone] 09/26/2016 13:17:18 09/26/2016 15:18:06 Active or passive immunization 172272597 Z23 Body mass index 25-29 - overweight 341679151 Z68.29 Recent lab work completed at [facility] - will send for lab work Advised 30 minutes of exercise 5 days/weekA dvised to not drink her calories Asthma 082703417 J45.90 9 albuterol PRN for exercise induced SOB Anxiety 06202379 F41.9 Will initiate buspirone 10mg BIDRTC 2-3 weeksPatie nt advised to make a counseling appointmen t on her way out of the office today Depressive disorder 6081 2967 F33.9 Will refer to counseling Adult heal th examination 893019367 Z00.01 25YO female here to establish care. Only complaints today are anxiety and depression . that she would like to see tx. [id number] MD Juwan Mckinley (Adult Med) [address] [place] [address] 02/20/2017 14:51:04 02/20/2017 15:31:02 Anxiety 59914489 F41.9 She will make a counseling appointmen t on her way out of the office todayWill initiate fluoxetine 10mg capsule QDRTC 3 weeks [id number] [facility] [address] [place] [address] 08/27/2017 14:13:00 08/28/2017 12:17:51 Kidney stone 29948600 N20.0 Resolved at this time Anxiety 62926770 F41.9 She will make a counseling appointmen t on her way out of the office todayAdvis ed that it is in her best interest to talk to someone Depressive disorder 2302 9007 F33.9 Will refer to counseling Health Concerns Section Related Observation LastModified by Organization Detai ls LastModified Time None Recorded Concern Status LastModified by Organization Details LastModified Time None Recorded Advance Directives Directive None Recorded Payers Insurance Date Sequence Insurance Name Policy Number Policy Palma Covered Member ID Palma Member ID Guarantor Name 06/27/2015 1 [facility] (MEDICAID HMO) [id number] Kelly Posey [id number] Kelly Posey 08/23/2016 1 [place] Kelly Posey [id number] Kelly Posey 11/06/2018 1 [facility] (MEDICAID HMO) [id number] Kelly Posey [id number] Kelly Posey Notes Date Note Type Note Provider Name and Address Organization Details Recorded Time 06/27/2015 text/html Back Pain starte d with Bj cabrera brittany, [facility] 06/27/2015 16:57:44 09/26/2016 text/html Anxiety/Depressi on Reported bypatient.Quality: mood worse;increased anxiety Severity:denies suicidal ideations Context:major life stressors(Still have issues with dealing from miscarriage of twins in 03/2016 in 2008 she found her stepdad on Father's Day on the floor [facility]);family problems(she has sole custody of her 4YO son and his father is not in his life) Associated Symptoms:denies homicidal ideations;eating less;emotional lability;anxiety;g rieving;stomach cramps;palpitation s Here to establish care with PCP. Patient states that the main reason for her visit today is that she is finally ready to seek help for her anxiety and depression Josseline Pena PA-C Attn: Accounting,[address] [place], [address], [facility] 09/26/2016 15:30:28 02/20/2017 text/html Anxiety/Depressi on Reported bypatient.Quality: mood worse;increased anxiety Severity:denies suicidal ideations Context:major life stressors(Still have issues with dealing from miscarriage of twins in 03/2016 in 2008 she [facility] that her aunt 2 months ago suddenly);family problems(she has sole custody of her 4YO son and his father is not in his life) Associated Symptoms:denies homicidal ideations;eating less;emotional lability;anxiety;g rieving;stomach cramps;palpitation sNotes:Did not like bupsirone - states that she feels like it gave her SI so she stopped Has been picking at her nails a lot Josseline Pena PA-C Attn: Accounting,[address] [place], [address], [facility] 02/20/2017 15:29:27 08/27/2017 text/html 26YO female here for ER f/u from 1 month ago for a kidney stone. States that she passed it and everything is fine. Denies dysuria, abdominal or back pain, n/v/fever/chills.P atients states that her son's paternal grandparents just found out about him and are now wanting to see him and be involved in his life. States that this is causing her great stress and doesn't have any time for herself. Denies SI/HI. States that she does not want to take any depression medication. Josseline Pena PA-C Attn: Accounting,[address] [facility], [place], [address], [place] - S[place] 08/27/2017 14:46:56 OBGyn Episode No OBEpisode recorded.
[2025-05-31 12:17] VITALS: BP 123/79; PULSE 77; RESP 18; TEMP 36.9; O2SAT 100
--- NOTE | 2025-05-31 15:03 | ED.ASTHMA ---
HPI - Asthma General Chief Complaint: Asthma Stated Complaint: Short of breath, asthma, dizzy Time Seen by Provider: 05/31/25 14:32 History of Present Illness HPI Narrative: 34-year-old female with a past medical history including asthma presenting to the emergency department with shortness of breath, upper respiratory infection symptoms and a migraine headache. She states her symptoms started yesterday and progressively got worse. She endorses a dry cough, congestion, itchy and watery nose and shortness of breath not responding to her albuterol treatments at home including nebulization of albuterol. States that she started developing a unilateral throbbing migraine on the right side but denies any visual deficits or neurological complaints. No trauma or injury. No loss of consciousness, chest pain, abdominal pain, back pain, fever, chills. Patient was previously in her normal state of health. No sick contacts to her knowledge. Related Data Home Medications ?Medication ?Instructions ?Recorded ?Confirmed ?Last Taken ?Type albuterol sulfate 90 mcg/actuation 2 inh inhalation Q4-6H PRN 12/18/21 02/27/22 Unknown History aerosol inhaler Shortness Of Breath Allergies Allergy/AdvReac Type Severity Reaction Status Date / Time adhesive tape Allergy Mild HIVES/RASH Verified 04/15/25 12:22 ES Review of Systems Review of Systems: As reviewed above in HPI [facility] Past Medical History Medical History Asthma Intrauterine Surgical History Surgical History H/O section Family History Family History Other No pertinent family history Social History Social History Smoking status: Never smoker Second hand tobacco smoke exposure: No Alcohol intake: never Substance use: former Substance use type: marijuana Last use: 11/2020 Living arrangements: alone Gender identity (if verbalized by the patient): Female Spiritual care concerns: No Exam Narrative: GENERAL: [Well-appearing, well-nourished, and in no acute distress.] HEAD: [Normocephalic, atraumatic.] EYES: [PERRLA and EOMI.] ENT: Nares with rhinorrhea. Mucous membranes moist. Congested signed upper airways NECK: Supple. CHEST: Coarse bibasilar breath sounds but no prolonged expiratory phase or tachypnea. No upper respiratory wheezing HEART: [Regular rate and rhythm]. No murmur heard. [Normal peripheral pulses.] ABDOMEN: [Soft, nondistended], [nontender], [No rigidity or guarding] EXTREMITIES: Normal range of motion. [No edema.] SKIN: Warm, dry, no rash. NEURO: [No focal deficits]. Alert and oriented [x3.] PSYCH: [Normal mood and affect.] Course Vital Signs Vital signs: Vital Signs Temperature 36.9 C 05/31/25 12:17 Pulse Rate 77 05/31/25 12:17 Respiratory Rate 18 05/31/25 12:17 Blood Pressure 123/79 05/31/25 12:17 Pulse Oximetry 100 05/31/25 12:17 Oxygen Delivery Room Air 05/31/25 12:17 Temperature 36.9 C 05/31/25 12:17 Pulse Rate 79 05/31/25 15:41 Respiratory Rate 15 05/31/25 15:41 Blood Pressure 122/102 H 05/31/25 15:41 Pulse Oximetry 100 05/31/25 15:41 Oxygen Delivery Room Air 05/31/25 14:36 MDM - Asthma MDM Narrative Medical decision making narrative: 34-year-old female with a past medical history including asthma presenting to the emergency department with shortness of breath, upper respiratory infection symptoms and a migraine headache. She states her symptoms started yesterday and progressively got worse. She endorses a dry cough, congestion, itchy and watery nose and shortness of breath not responding to her albuterol treatments at home including nebulization of albuterol. States that she started developing a unilateral throbbing migraine on the right side but denies any visual deficits or neurological complaints. No trauma or injury. No loss of consciousness, chest pain, abdominal pain, back pain, fever, chills. Patient was previously in her normal state of health. No sick contacts to her knowledge. Patient is not any acute physical or respiratory distress but is complaining of shortness of breath and a headache. Vital signs are reassuring without any tachycardia, fever, hypoxia blood pressure concerns. She has some scattered bibasilar coarse breath sounds but no tachypnea or prolonged expiratory phase. Suspect upper respiratory infection versus lower respiratory infection versus asthma exacerbation with concomitant migraine headache. Low suspicion any other acute process such as pneumonia or pneumothorax. Low suspicion intracranial pathology causing her headache given her low risk factors and classical symptoms of a migraine without any red flags. Laboratory studies were ordered including CBC, CMP in a test, chest x-ray ordered. Viral panel swabs order. She was treated with albuterol and Atrovent continuous for 1 hour in addition to magnesium for bronchodilation. She was given Decadron for combination of asthma exacerbation and migraine prophylaxis treatment and given Compazine diphenhydramine fluids and re-evaluated. Patient had symptomatic improvement after treatments. No leukocytosis on labs, normal hemoglobin level, evidence of some hemoconcentration and dehydration which was corrected with fluids here. Electrolytes are unremarkable. Normal renal function, normal glucose. Normal magnesium, normal LFTs. Negative test. Negative viral panel. Chest x-ray without any acute cardiopulmonary process. Patient has an unremarkable workup is hemodynamically stable GB safely discharged home at this time with follow-up instructions with her primary care provider. Given a short course of steroids for her treatment plan as well as decongestants for her upper respiratory infection. Medical Records Attestation: I reviewed the patient's medical records. Lab Data Attestation: I reviewed the patient's lab results. 05/31/25 15:10 05/31/25 15:10 Labs: Lab Results 05/31/25 Range/Units 15:10 WBC 7.6 (4.5-10.0) K/mm3 RBC 5.23 (4.2-5.4) M/mm3 Hgb 14.8 D (12.0-15.0) g/dL Hct 45.0 (37.0-47.0) % MCV 86.0 (80-100) fl MCH 28.3 (26-34) pg MCHC 32.9 (32-36) g/dl RDW 13.0 (11.5-14.5) % Plt Count 384 H D (150-375) k/mm3 MPV 10.2 (7.4-10.4) fl Immature Gran % (Auto) 0.3 (0-0.5) % Neut % (Auto) 50.9 (45.5-73.1) % Lymph % (Auto) 33.7 (18.3-44.2) % Sequoyah % (Auto) 7.8 (2.6-8.5) % Eos % (Auto) 6.5 H (0-4.4) % Baso % (Auto) 0.8 (0.2-1.2) % Lymph # (Auto) 2.56 (0.9-3.2) K/mm3 Sequoyah # (Auto) 0.6 (0.1-0.6) K/mm3 Eos # (Auto) 0.5 H (0-0.3) K/mm3 Baso # (Auto) 0.1 (0.0-0.1) K/mm3 Abs Immat Gran (auto) 0.02 (0.00-0.031) K/mm3 Absolute Neuts (auto) 3.9 (1.3-6.7) K/mm3 Absolute Nucleated RBC 0.000 (0.0-0.012) K/mm3 Nucleated RBC % 0.0 (0.0-0.2) % Sodium 138 (137-145) mmol/L Potassium 4.1 (3.4-5.0) mmol/L Chloride 108 H (98-107) mmol/L Carbon Dioxide 21 L (22-30) mmol/L Anion Gap 9 (4-12) mmol/L BUN 10 D (7-17) mg/dL Creatinine 0.72 (0.7-1.0) mg/dL Estim Creat Clear Calc 106 ml/min Estimated GFR > 60 (59 - ) Glucose 93 (65-110) mg/dL Calcium 9.3 (8.4-10.2) mg/dL Magnesium 2.4 H (1.6-2.3) mg/dL Total Bilirubin 0.5 (0.2-1.3) mg/dL AST 36 (14-36) U/L ALT 35 (6-35) U/L Alkaline Phosphatase 68 (38-126) U/L Total Protein 7.8 (6.3-8.2) g/dL Albumin 4.4 (3.5-5.1) g/dL Serum HCG, Qual Negative Influenza A (RT-PCR) Negative (Negative) Influenza B (RT-PCR) Negative (Negative) RSV (RT-PCR) Negative (Negative) SARS-CoV-2 RNA (RT-PCR) Negative (Negative) Imaging Data Attestation: I personally reviewed and interpreted this imaging study as follows: My impression: Impressions Chest X-Ray 05/31/25 16:05 IMPRESSION: No acute cardiopulmonary process. Critical Care Time Critical Care Time Critical Care Time: Yes Total Critical Care Time: 35 Discharge Plan Discharge Clinical Impression: Asthma exacerbation, Headache, migraine, Acute upper respiratory infection Patient Disposition: Home Condition: Stable Instructions: Antibiotic Form, Asthma (ED), Migraine Headache (ED), Upper Respiratory Infection (DC) Additional Instructions: Your laboratory studies and imaging studies are reassuring, no signs of pneumonia on your symptoms are likely secondary to a viral upper respiratory infection. This likely cause your asthma flare up and also caused her headache. We have treated the above and will be sending you home with steroids as well as decongested medications. Follow-up with regular doctor, return with any recurrence or emergent concerns. Patient Language: Spanish Prescriptions: New prednisone 50 mg tablet 50 mg PO DAILY 5 Days Qty: 5 0RF guaifenesin [Mucinex] 1,200 mg tablet extended release 12hr 1,200 mg PO Q12H Qty: 20 0RF loratadine [Claritin] 10 mg tablet 10 mg PO DAILY Qty: 20 0RF No Action dicyclomine 20 mg tablet 20 mg PO QID 7 Days Qty: 28 0RF ondansetron 4 mg tablet,disintegrating 4 mg PO Q6-8H PRN (Reason: nausea and vomiting) Qty: 7 0RF hydrocodone-acetaminophen 5-325 mg tablet 1 tablet PO Q6H PRN (Reason: pain) Qty: 30 0RF docusate sodium [Colace] 100 mg capsule 100 mg PO BID Qty: 30 0RF albuterol sulfate 90 mcg/actuation HFA aerosol inhaler 2 inh INHALATION Q4-6H PRN (Reason: Shortness Of Breath) Follow-up/Referrals: PHYSICIAN,PASTING MACHINE OFFBEARER [Primary Care Provider] - Time of Disposition: 18:28
--- NOTE | 2025-05-31 15:12 | PC.NURSE ---
patient will be moving to room 19 when that room is empty to allow for telemetry monitoring
[2025-05-31] MEDS: ALBUTEROL SULFATE NEB 2.5 MG/3 ML INH 10 MG INHALATION (15:14)
[2025-05-31] MEDS: IPRATROPIUM BR 0.02% INH SOLN 0.5 MG/2.5 ML VIAL 1 MG INHALATION (15:14)
[2025-05-31 15:22] LABS: Basophils Absolute Auto 0.1 K/mm3 (0.0-0.1); Basophils Percent Auto 0.8 % (0.2-1.2); Eosinophils Absolute Auto 0.5 K/mm3 (0-0.3); Eosinophils Percent Auto 6.5 % (0-4.4); Hemoglobin 14.8 g/dL (12.0-15.0); Immature Granulocyte Absolute 0.02 K/mm3 (0.00-0.031); Immature Granulocyte Percent A 0.3 % (0-0.5); Lymphocytes Absolute Auto 2.56 K/mm3 (0.9-3.2); Lymphocytes Percent Auto 33.7 % (18.3-44.2); Mean Corpuscular HGB Conc 32.9 g/dl (32-36); Mean Corpuscular Hemoglobin 28.3 pg (26-34); Mean Platelet Volume 10.2 fl (7.4-10.4); Monocytes Absolute Auto 0.6 K/mm3 (0.1-0.6); Monocytes Percent Auto 7.8 % (2.6-8.5); Neutrophils Absolute Auto 3.9 K/mm3 (1.3-6.7); Neutrophils Percent Auto 50.9 % (45.5-73.1); Platelet Count Result 384 k/mm3 (150-375); Red Blood Count 5.23 M/mm3 (4.2-5.4); White Blood Count 7.6 K/mm3 (4.5-10.0)
[2025-05-31 15:25] VITALS: PULSE 78; RESP 20
--- OUTSIDE RECORDS SUMMARY | 2025-05-31 15:26 | XMS_ITS | Clinical Summary ---
Author Organization [facility] Address [address] [place] [address] Phone Care Team Providers Care Paper Cup Machine Operator Name Role Phone Provider, Unknown Primary Care Provider Unavaila ble Social History Tobacco Use Types Packs/Day Years Used Date Smoking Tobacco: Never Assessed Comments Unknown Sex and Gender Information Value Date Recorded Sex Assigned at Not on file Legal Sex Female 7:45 PM CDT Gender Identity Not on file Sexual Orientation Not on file Plan of Treatment Not on file Care Teams Paper Cup Machine Operator Relationship Specialty Start Date End Date Provider, Unknown UNKNOWN PCP - General 03/05/17
--- OUTSIDE RECORDS SUMMARY | 2025-05-31 15:26 | XMS_ITS | Continuity of Care Document ---
Author Organization [facility] Address [address] [place] [address] utive [facility] [address] [place] [address] Phone Care Team Providers Care Coding Compliance Specialist Name Role Phone Krause OD, Bj Unavailable Unavailable Procedures Procedure Date Eye Exam, New Patient Advance Directives Directive Yes / No Effective Date File Name No Information Encounters Encounter Description Practice Location Reason(s) For Visit Diagnoses Date Provider Providers Copied on Encounter [facility], [address] [place] [address] [address] [place], [place], [id number], [place] tel:[phone] [facility] [place] No Information [phone] Krause OD Bj. [address] [facility] [place] , [address], [place], [address], [place]. tel:[phone] Family History Family Member Type Diagnosis Age At Onset No Information Payers Payer name Insurance type Covered green party ID Authoriza tion(s) No Information Social History Type Description Quantity Date Captured Comments Sex Female Smoking Status No Information Chief Complaint And Reason For Visit No Information Reason For Referral Reason For Referral No Information History Of Present Illness Encounter Date Complaint History Of Prese nt Illness No Information Functional Status Date Functional Assessmen t No Information Instructions Date Instruction Additional Infor mation No Information Assessments Type Assessment Date No Information Patient Care Teams Name Effective Dates (start - stop) Status Members No Information
[2025-05-31 15:36] LABS: Alanine Aminotransferase 35 U/L (6-35); Albumin Level 4.4 g/dL (3.5-5.1); Alkaline Phosphatase 68 U/L (38-126); Anion Gap 9 mmol/L (4-12); Aspartate Amino Transferase 36 U/L (14-36); Bilirubin,Total 0.5 mg/dL (0.2-1.3); Blood Urea Nitrogen 10 mg/dL (7-17); Calcium 9.3 mg/dL (8.4-10.2); Carbon Dioxide 21 mmol/L (22-30); Chloride 108 mmol/L (98-107); Estimated CRCL calculation 106 ml/min; Estimated Glomerular Filt Rate > 60; Glucose 93 mg/dL (65-110); Magnesium 2.4 mg/dL (1.6-2.3); Potassium 4.1 mmol/L (3.4-5.0); SPREG INTERNAL CONTROL Positive; Serum Qual hCG Negative; Sodium 138 mmol/L (137-145); Total Protein 7.8 g/dL (6.3-8.2)
[2025-05-31 15:41] VITALS: BP 122/102; PULSE 79; RESP 15; O2SAT 100
[2025-05-31] MEDS: SODIUM CHLORIDE 0.9% IV 1,000 ML 999 ML IV CONT (15:47)
[2025-05-31] MEDS: MAGNESIUM SULF 2 GM/WATER 50ML 2 GM/50 ML BAG IVPB (15:48)
[2025-05-31] MEDS: PROCHLORPERAZINE EDISYLATE 10 MG/2 ML VIAL IV PUSH (15:48)
[2025-05-31] MEDS: diphenhydrAMINE HCl INJ 50 MG/ML VIAL 25 MG IV PUSH (15:48)
[2025-05-31] MEDS: dexAMETHasone SOD PHOS INJ 10 MG/ML 1 ML VIAL IV PUSH (15:48)
[2025-05-31 15:59] LABS: Influenza A QL RT-PCR Negative (Negative); Influenza B QL RT-PCR Negative (Negative); RSV RNA, RT-PCR. Negative (Negative); SARS-CoV-2 RNA PCR Negative (Negative)
[2025-05-31 18:54] VITALS: BP 127/62; PULSE 87; RESP 18; O2SAT 98
== END 2025-05-31 18:55 | disposition home or self-care (01) ==
PROVIDERS: Emergency Provider Student in an Organized Health Care Education/Training Program
DX: J45.901 Unspecified asthma with (acute) exacerbation (principal); G43.909 Migraine, unspecified, not intractable, without status migrainosus; J06.9 Acute upper respiratory infection, unspecified; Z20.822 Contact with and (suspected) exposure to COVID-19
CPT/HCPCS: 36415; 71045; 80053; 83735; 84703; 85025; 87637; 94640; 96365; 96375; 99284; J0780; J1100; J1200; J3475; J7030

== ENCOUNTER 2025-09-12 13:14 | Emergency (ER) | payer OTHER, SELFPAY ==
--- NOTE | 2025-09-12 13:15 | ED.URI ---
HPI - URI/Sore Throat General Chief Complaint: Upper Respiratory Infection Stated Complaint: congestion/stiff neck Time Seen by Provider: 09/12/25 13:14 Source: patient Mode of arrival: ambulatory Limitations: no limitations History of Present Illness HPI Narrative: Patient is a 34-year-old female who presents with 3 days of sinus congestion, drainage, sinus pressure, headache, sore throat, body aches and fatigue, bilateral ear pressure and congestion. Also reports that she feels her lymph nodes are swollen and tender on her neck. Denies any fever, chills, nausea, vomiting, diarrhea. Is taking [id number] Tylenol cold headache. Related Data Home Medications ?Medication ?Instructions ?Recorded ?Confirmed ?Last Taken ?Type albuterol sulfate 90 mcg/actuation 2 inh inhalation Q4-6H PRN 12/18/21 02/27/22 Unknown History aerosol inhaler Shortness Of Breath Allergies Allergy/AdvReac Type Severity Reaction Status Date / Time adhesive tape Allergy Mild HIVES/RASH Verified 09/12/25 13:15 ES Review of Systems Review of Systems: All systems reviewed & are unremarkable except as noted in HPI and below Constitutional: Constitutional: Denies chills, Reports fatigue, Denies fever(s), Reports headache(s), Denies malaise and Denies weakness Eyes: Eyes: Denies blurry vision, Denies itchy eyes and Denies loss of vision ENT: Denies otalgia, Reports headache(s), Reports nasal congestion, Denies sinus pain, Reports sinus pressure and Reports sore throat Cardiovascular: Cardiovascular: Denies chest pain, Denies irregular heart rhythm and Denies dyspnea Respiratory: Respiratory: Denies cough and Denies dyspnea Gastrointestinal: Gastrointestinal: Denies abdominal pain, Denies diarrhea, Denies nausea and Denies vomiting Musculoskeletal: Musculoskeletal: Denies back pain, Reports myalgias and Denies arthralgias Integumentary/Breasts: Skin/Breast: Denies pruritus and Denies rash Neurologic: Reports headache(s), Denies loss of vision and Denies weakness Psychiatric: Psychiatric: Reports no additional psychiatric complaints Endocrine: Endocrine: Denies fatigue Allergic/Immunologic: Allergic/Immunologic: Denies itchy eyes PMFSH Past Medical History Medical History Asthma Intrauterine Surgical History Surgical History H/O section Family History Family History Other No pertinent family history Social History Social History Smoking status: Never smoker Second hand tobacco smoke exposure: No Alcohol intake: never Substance use: former Substance use type: marijuana Last use: 11/2020 Living arrangements: alone Gender identity (if verbalized by the patient): Female Spiritual care concerns: No Comments At time of signature, agree with nursing past medical, surgical, social and family history. There is no relevant family history pertinent to the presenting complaint. Exam Const: General: cooperative, healthy appearing, comfortable, no acute distress and well nourished Nutritional Appearance: well nourished Orientation/consciousness: patient oriented x3 Limitations: no limitations HENMT: Head: normal to inspection, normocephalic and atraumatic Ears: hearing grossly normal bilaterally, external ears normal, TM's normal bilaterally, EAC's normal and no periauricular adenopathy Face/Nose/Sinus: Normal external nose present, Abnormal mucous membranes and turbinates present erythematous bilateral and diffuse, normal facial exam, sinuses nontender and face symmetric Face and sinus: normal facial exam, sinuses nontender and face symmetric Mouth: Yes Normal oral and palatal mucosa present, Yes lip normal, Yes tongue normal, Yes Normal salivary glands and ducts present, Yes oropharynx normal and Yes moist mucous membranes Teeth and gingiva: dentition normal Throat: posterior oropharynx normal, tonsils normal and uvula midline Eyes: General: appearance normal, both eyes and all related structures Alignment and Position: alignment normal and position normal Periorbital: periorbital findings normal Eyelids: eyelids normal Pupils: Equal, round and reactive pupils present Neck: Neck: normal visual inspection, full ROM, no lymphadenopathy, no meningeal signs and supple Chest: Chest palpation & inspection: normal inspection of the chest and normal palpation of entire chest wall Resp: Effort & Inspection: normal respiratory effort and able to speak in complete sentences Auscultation: clear to auscultation bilaterally, no crackles, no rales, no rhonchi and no wheezes Cardio: Rate: regular rate Rhythm: regular rhythm Heart sounds: S1 normal heart sound present and S2 normal heart sound present GI: Inspection: normal to inspection Skin: General skin exam: normal color and no rashes or lesions noted Neuro: General: patient oriented x3 and moves all extremities Cranial nerves: Yes Equal, round and reactive pupils present Speech: normal speech Gait exam (Neuro): Normal gait present Extrem: General: normal to inspection, full ROM and no edema Psych: Appearance: grossly normal and well kempt Mental Status: mental status grossly normal Speech and movement: Normal speech and movement present Affect: normal affect Attitude: cooperative Thought process: Normal thought process present Course Course Emergency Course: Discharge instructions reviewed with patient, as well as provided in writing per nursing staff. The instructions also include specific and strict return/GO TO THE ER as well as f/u information. All questions have been answered, and the patient deny any further questions with discharge and discharge plan. Portions of this record may have been created with voice recognition software Level of Care: Express Care Visit Vital Signs Vital signs: Vital Signs Temperature 36.8 C 09/12/25 13:22 Pulse Rate 97 09/12/25 13:22 Respiratory Rate 18 09/12/25 13:22 Blood Pressure 122/74 09/12/25 13:22 Pulse Oximetry 98 09/12/25 13:22 Oxygen Delivery Room Air 09/12/25 13:22 Temperature 36.8 C 09/12/25 13:22 Pulse Rate 97 09/12/25 13:22 Respiratory Rate 18 09/12/25 13:22 Blood Pressure 122/74 09/12/25 13:22 Pulse Oximetry 98 09/12/25 13:22 Oxygen Delivery Room Air 09/12/25 13:22 Reviewed MDM - URI/Sore Throat MDM Narrative Medical decision making narrative: Discussed red flag symptoms with patient including worsening neck pain and stiffness along with high fevers she should go straight to the emergency department. Pt well hydrated appearing, in no respiratory distress, hemodynamically stable. Recommend supportive care. The patient is stable at time of discharge the clinical impression was discussed and the patient was given the opportunity to ask questions, which were addressed as completely as possible given the information available at present. Anticipatory guidance and return to care precautions were discussed and the importance of primary care follow-up was stressed and encouraged. The patient voiced understanding of the plan, indications to return, and the need for follow-up. Exam findings show no acute concerns or changes Patient is appropriate for outpatient treatment and follow-up. Differential diagnosis considered: Bourgeois virus, strep pharyngitis, allergic rhinitis, upper respiratory tract infection, sinusitis, rhinosinusitis, nasopharyngitis. viral pharyngitis, otitis media, otitis externa, otitis effusion, foreign body, cerumen impaction, viral syndrome, and influenza.? Medical Records Attestation: I reviewed the patient's medical records. Lab Data Attestation: I reviewed the patient's lab results. Labs: Lab Results 09/12/25 09/12/25 Range/Units 13:47 13:56 POC Influenza A Ag Negative (Negative) POC Influenza B Ag Negative (Negative) POC SARS CoV-2 Ag Negative (Negative) POC Grp A Strep Screen Negative (Negative) Discharge Plan Discharge Clinical Impression: Upper respiratory infection Qualifiers: URI type: unspecified viral URI Qualified Code(s): J06.9 - Acute upper respiratory infection, unspecified Patient Disposition: Home Condition: Stable Instructions: Upper Respiratory Infection (ED) Additional Instructions: Your rapid strep swab was negative today at [facility]. A throat culture will be sent to the laboratory for further testing. If the test is positive, you will receive a phone call within 48 hours and an appropriate antibiotic will be initiated at that time. Your Covid and flu are both negative Your symptoms are likely due to a viral illness, which is not treated with antibiotics. Viral symptoms can be present for up to a few weeks. -For pain/fever, you may take: Tylenol 650-1000mg by mouth every 4-6 hours. Do not exceed 4000mg in 24 hours. Advil (Ibuprofen) 600 mg by mouth every 6 hours. Do not exceed 2400mg in 24 hours. 8 AM: Tylenol 11 AM: Ibuprofen 2 PM: Tylenol 5 PM: Ibuprofen 8 PM: Tylenol 11 PM: Ibuprofen 2 AM: Tylenol 5 AM: Ibuprofen -Antihistamine medication such as Benadryl/Zyrtec at night and Claritin/Tatum during the day can help improve symptoms. -Use Flonase twice a day for 5 days then daily to help reduce the inflammation and dry up your sinuses. -You can also use Sudafed behind the pharmacy counter(12 or 24 hour). Be sure to drink plenty of water with these medications at least 8 ounces with every dose and it is important to drink 8 to 10 glasses of water per day. Water is a natural decongestant -Eat and drink things that are easy to swallow, like tea or soup, or popsicles. -Oral rinses such as: Salt water gargles and/or may use topical anesthetic (eg. Chloraseptic spray) or lozenges to relieve dryness or throat pain). -Frequent hand washing or hand textile colorist dyer is one of the best ways to prevent spread of infection. -Using a vaporizer or humidifier at night will also help thin secretions and help with coughing up phlegm. Call your Primary Care Doctor and make a follow-up appointment in 3 days. If your cough worsens, you develop a fever greater than 103, you develop shaking chills, a fast heartbeat, trouble breathing and/or feel you are are breathing much faster than usual, call your Primary Care Doctor or go to the ER. Patient Language: Romansh Prescriptions: New fluticasone propionate [Flonase Allergy Relief] 50 mcg/actuation spray,suspension 1 spray intranasal DAILY Qty: 16 0RF Rx Instructions: administer into each nostril ibuprofen 600 mg tablet 600 mg PO TID PRN (Reason: pain) Qty: 30 0RF loratadine 10 mg tablet 10 mg PO DAILY Qty: 30 0RF No Action guaifenesin [Mucinex] 1,200 mg tablet extended release 12hr 1,200 mg PO Q12H Qty: 20 0RF loratadine [Claritin] 10 mg tablet 10 mg PO DAILY Qty: 20 0RF albuterol sulfate 90 mcg/actuation HFA aerosol inhaler 2 inh INHALATION Q4-6H PRN (Reason: Shortness Of Breath) Follow-up/Referrals: Suhail Becker MD [Physician, Family Practice] - 3 Days Stand Alone Forms: Work/School Release IP
[2025-09-12 13:22] VITALS: BP 122/74; PULSE 97; RESP 18; TEMP 36.8; O2SAT 98
[2025-09-12 13:50] LABS: EDSTREPNEGPOS1 Negative (Negative)
[2025-09-12 13:57] LABS: EDCOVIDSCREEN Negative (Negative); EDINFLUASCREEN Negative (Negative); EDINFLUBSCREEN Negative (Negative)
== END 2025-09-12 14:30 | disposition home or self-care (01) ==
PROVIDERS: Emergency Provider Nurse Practitioner Family
DX: J06.9 Acute upper respiratory infection, unspecified (principal); Z20.822 Contact with and (suspected) exposure to COVID-19; J45.909 Unspecified asthma, uncomplicated
CPT/HCPCS: 87081; 87426; 87804; 87880; 99213; G0463